=== PATIENT | male | born 1985 | race Caucasian/White ===

== ENCOUNTER 2024-02-08 15:57 | Inpatient (IN) | payer OTHER, SELFPAY ==
[2024-02-08] VITALS (7 sets, daily range): BP systolic 110–161; BP diastolic 63–99; BMI 23.5; BMI 23.0
[2024-02-08 11:09] LABS: Glucose - Point of Care 273 mg/dl (70-99)
[2024-02-08] MEDS: NSS 1000 IV ×2 (12:16→13:01)
[2024-02-08] MEDS: TORADOL 30 MG IV (12:18)
[2024-02-08] MEDS: ZOFRAN 4 MG IV (12:18)
[2024-02-08 12:25] LABS: % Basophils 0.1 % (0-2); % Immature Granulocytes 0.4 % (0-0.5); % Lymphocytes 3.8 % (20.5-51.1); % Monocytes 5.1 % (1.7-9.3); % Neutrophils 90.6 % (42.2-75.2); Absolute Immature Granulocytes 0.1 10^3/uL (0-0.05); Absolute Lymphocytes 0.6 10^3/uL (1.2-3.4); Absolute Monocytes 0.9 10^3/uL (0.1-0.6); Absolute Neutrophils 15.2 10^3/uL (1.4-6.5); Hematocrit 42.8 % (39.0-52.0); Hemoglobin 15.6 g/dL (13.0-18.0); Mean Corp Hgb Conc. 36.4 g/dL (33.0-37.0); Mean Corpuscular Volume 85.1 fL (80.0-94.0); Nucleated Red Blood Cells % 0 % (-); Platelet Count 273 10^3/uL (130-400); Red Blood Cell Count 5.03 10^6/uL (4.70-6.10); Red Cell Dist. Width 11.7 % (11.5-14.5); White Blood Cell Count 16.7 10^3/uL (4.8-10.8)
[2024-02-08 12:26] LABS: Venous Blood Gas B.E. 9.1 mmol/L (-4 to +4); Venous Blood Gas HCO3 30.7 mmol/L (22-27); Venous Blood Gas O2 Sat % 85.1 %; Venous Blood Gas pCO2 32 mmHg (35-48); Venous Blood Gas pH 7.59 (7.32-7.43); Venous Blood Gas pO2 48 mmHg (30-50)
[2024-02-08 12:27] LABS: Venous Blood Gas O2 Therapy RA
[2024-02-08 12:42] LABS: ALT (SGPT) 30 U/L (0-50); AST (SGOT) 28 U/L (17-59); Albumin 5.5 g/dl (3.5-5.0); Alkaline Phosphatase 80 U/L (38-126); Blood Urea Nitrogen 29 mg/dl (9-20); Calcium 10.6 mg/dl (8.4-10.2); Carbon Dioxide 28 mmol/L (22-30); Chloride 94 mmol/L (98-107); Estimated Creatinine Clearance 105 ml/min; Glucose 340 mg/dl (70-99); Lipase 20 U/L (23-300); Potassium 3.7 mmol/L (3.5-5.1); Sodium 140 mmol/L (135-145); Total Bilirubin 1.6 mg/dl (0.2-1.3); Total Protein 7.7 g/dl (6.3-8.2); eGFR > 60.00
[2024-02-08 12:49] LABS: B-Hydroxybutyrate 2.27 mmol/L (0.02-0.27)
[2024-02-08] MEDS: NOVOLIN R 7 UNITS IV (12:54)
--- NOTE | 2024-02-08 13:14 | ED.GENMED ---
History of Present Illness
General
Chief Complaint: Abdominal Symptoms
Source: patient
Time Seen by Provider: 02/08/24 11:51
History of Present Illness
History of Present Illness:
38-year-old male with past medical history of type 1 insulin-dependent diabetes presenting the emergency department for evaluation of persistent nausea and vomiting accompanied with abdominal pain that started last night and persisted into this
morning accompanied with blood sugars have been elevated at greater than 250. Patient states that over the last few weeks his blood sugars have been more abnormal than usual noting that his blood sugars are usually around 125-150. Patient is here
with his father who notes that about 2 months ago patient was admitted at [facility] for diabetic ketoacidosis. Patient states he cannot think of any triggers including recent illnesses, abnormal foods or any other reasoning behind his
symptoms that brought him here today. No known sick contacts or recent antibiotics. Social history was noted for marijuana use every other day, patient denies any use yesterday.
Past History
Past History
ED Past Medical History: IDDM
ED Past Surgical History: None
Social History
Tobacco: Non-smoker
Alcohol: Occasional
Drug: Marijuana
Personal: Single
Living: with family
Review of Systems
Review of Systems
All Other Systems: ROS reviewed and negative except as documented in HPI and ROS
Phy Exam
Physical Exam
Physical Exam:
GENERAL: Alert , ill-appearing and appears quite uncomfortable
EYE: Clear conjunctiva
NECK: Supple
ENT: o/p clr, dry mucous membranes
CARDIAC: Regular rate and rhythm, no murmur.
LUNGS: Clear breath sounds bilaterally, no acute respiratory distress, no wheezes/rales/rhonchi
ABDOMEN: Soft, generalized tenderness, no r/g, no cvat
NEUROLOGICAL: Alert and oriented
SKIN: Warm and dry, skin intact.
MUSCULOSKELETAL: well perfused.
PSYCH: Normal and appropriate interaction.
Scores
Heart Failure Risk
Heart Failure Risk Score: Not Applicable
Heart Score for Chest Pain Patients
STEMI patient?: Not applicable
Withdrawal Assessment of Alcohol
Withdrawal Assessment Completed?: Not applicable
Course
Orders/Labs/Results
Orders:
Orders
02/08/24 11:52
Urinalysis Reflex To Culture Urgent
0.9% Sodium Chloride 1000 ml [Nss] 1,000 ml IV BOLUS
02/08/24 12:07
Ketorolac [Toradol] 30 mg IV NOW STA
Ondansetron Injectable [Zofran] 4 mg IV NOW STA
02/08/24 12:12
B-Hydroxybutyrate Urgent
Complete Blood Count/With Diff Urgent
Comprehensive Metabolic Panel Urgent
Lipase Urgent
Venous Blood Gas Urgent
%Oxygen/Room Air: RA
02/08/24 12:47
0.9% Sodium Chloride 1000 ml [Nss] 1,000 ml IV BOLUS
02/08/24 12:48
IV Insert/Care/Rem.- Treatment PRN
Insulin Human Regular [Novolin R] 7 units IV NOW STA
02/08/24 13:29
Metoclopramide [Reglan] 10 mg IV NOW STA
Abnormal Lab Results
02/08/24 02/08/24 02/08/24
11:08 12:12 13:50
WBC 16.7 H 10^3/uL
(4.8-10.8)
Abs Immat Gran (auto) 0.1 H 10^3/uL
(0-0.05)
Absolute Neuts (auto) 15.2 H 10^3/uL
(1.4-6.5)
Absolute Lymphs (auto) 0.6 L 10^3/uL
(1.2-3.4)
Absolute Monos (auto) 0.9 H 10^3/uL
(0.1-0.6)
Neutrophils % 90.6 H %
(42.2-75.2)
Lymphocytes % 3.8 L %
(20.5-51.1)
VBG pH 7.59 H
(7.32-7.43)
VBG pCO2 32 L mmHg
(35-48)
VBG HCO3 30.7 H mmol/L
(22-27)
Chloride 94 L mmol/L
(98-107)
BUN 29 H mg/dl
(9-20)
Glucose 340 H mg/dl
(70-99)
Calcium 10.6 H mg/dl
(8.4-10.2)
Total Bilirubin 1.6 H mg/dl
(0.2-1.3)
Albumin 5.5 H g/dl
(3.5-5.0)
Lipase 20 L U/L
(23-300)
B-Hydroxybutyrate 2.27 H mmol/L
(0.02-0.27)
POC Glucose 273 H mg/dl 221 H mg/dl
(70-99) (70-99)
02/08/24 12:12
02/08/24 12:12
Vital Signs
Initial and Last Documented VS:
Initial Vital Signs
Temp Pulse Resp BP Pulse Ox
98.2 F 70 16 161/99 98
02/08/24 11:06 02/08/24 11:06 02/08/24 11:06 02/08/24 11:06 02/08/24 11:06
Last Documented Vital Signs
Temp Pulse Resp BP Pulse Ox
98.2 F 89 34 139/74 97
02/08/24 11:06 02/08/24 14:00 02/08/24 14:00 02/08/24 13:01 02/08/24 13:45
Psychology Assistant consulted with Physician
Psychology Assistant consulted with physician?: Yes
Name of Physician Consulted: Melani
MDM/Problems Addressed
Differential Diagnosis Includes:
DKA, HHNK, hyperglycemia, gastroparesis, cannabinoid hyperemesis, GERD/gastritis
MDM/Problems Addressed:
38-year-old male with past medical history of type 1 insulin-dependent diabetes presenting to the emergency department for evaluation of nausea and vomiting with abdominal discomfort that started last night and continued today. Noted to have
elevated blood sugars. Recent admission at [facility] 2 months ago for diabetic ketoacidosis. Will check labs including VBG and beta hydroxybutyrate. In the meantime medications ordered including IV fluids, Zofran and Toradol.
Reassessment following
Chronic conditions affecting care: DM
Acute Exacerbation and/or Progression of Chronic Illness: DM
*Pulse Oximetry
Patient hypoxic: no
*Shoes Hand Sewer Interpretation
Rate: normal
Rhythm: sinus
*Critical Care Note
Total Time (30-74mins, 75-104mins- exclusive of procedures): Not Applicable
Comment
Comment:
Patient's labs reveal leukocytosis. VBG is 7.59. Chemistry reveals an anion gap of 18. Glucose of 340. Patient's beta hydroxybutyrate is also significantly elevated at 2.27. This possible patient's VBG is alkalotic due to tachypnea. I do
suspect patient is bordering on DKA however. An additional second liter of IV fluids was ordered in addition to 7 units of insulin IV. Anticipate admission.
Patient Management
Escalation/DeEscalation of care consider admission/obs:
Hospitalist team is aware and accepts for continued evaluation and treatment. Will defer insulin drip to hospitalist team.
ED Attending Note
-
Portions of this chart may have been created with voice recognition software.� Occasional wrong word or��sound alike� substitutions may have occurred due to the inherent limitations of voice recognition software.
Discharge Plan
Departure
Patient Disposition: Admit
Date of Disposition: 02/08/24
Time of Disposition: 13:24
Presentation/result/management discussed w/ accepting MD/DO: Hospitalist
Discharge Problem:
Hyperglycemia due to type 1 diabetes mellitus, Nausea and vomiting
Prescriptions:
No Action
insulin glargine [Lantus U-100 Insulin] 100 UNITS/1 ML solution
30 units SC HS
insulin lispro [Humalog KwikPen Insulin] 100 unit/mL Insulin Pen
8 sliding scale dose SC AC
buspirone [BuSpar] 15 mg Tablet
15 mg PO TID
bupropion HCl [Wellbutrin XL] 150 mg Tablet Extended Release 24 Hr
150 mg PO DAILY
Referrals:
Sandie Sands DO [Family Provider] -
Interventions
Interventions:
*Risk Screen - Suicide Last Done: 02/08/24 12:24
*General Assessment Last Done: 02/08/24 12:24
*Neglect/Abuse Screening Last Done: 02/08/24 12:24
*ED COVID-19 Vaccine History Last Done: 02/08/24 12:24
RQ-Xyiyrn-Iaopbzewjw Assessment Last Done: 02/08/24 12:24
Discharge Date and Time
Print Language: MACEDONIAN
[2024-02-08] MEDS: REGLAN 10 MG IV (13:47)
[2024-02-08 13:51] LABS: Glucose - Point of Care 221 mg/dl (70-99)
[2024-02-08 15:32] LABS: Glucose - Point of Care 285 mg/dl (70-99)
--- NOTE | 2024-02-08 15:44 | HPS.HSE ---
Family Physician
-
Family Physician: Sandie Sands
Chief Complaint
-
Nausea and Vomiting with Abdominal Pain
History of Present Illness
38 year old male presents to the ED complaining of nausea, vomiting and abdominal pain. Patient has a past medical history of type 1 insulin dependent diabetes and anxiety and depression. His symptoms started the day before and got worse throughout
the day. Patient states that he has not felt being sick like this before and the feeling is completely different from when he was admitted with DKA at [facility] 2 months ago. Patient states that he has been under a lot of stress lately due
to a situation with his daughter and that this stress has been leading to increased gastroparesis. Patient says that he cannot think of any triggers that brought about his current condition as he has been keeping his diabetes under control since his
hospitalization. He also states that he has not had any recent illnesses, abnormal foods, any sick contact, travel or any new medications. Patient complains of some shortness of breath which he attributes to abdominal pain as he is not able to take
deep breaths due to the pain. Patient complains of pain in the epigastric region that radiates down bilaterally.
Medical History
Past Medical History
Past Medical History: Reports IDDM and Psychiatric ( Anxiety and Depression)
Past Surgical History: Reports None
Social History
Tobacco: Non-smoker
Alcohol: None
Drug: Marijuana (Every other day)
Family History
Family History: Other (Mother- Lupus)
Allergies / Home Medications
Allergies reflects when Allergies were last updated in [facility].
Home Medications with original date entered in [facility]
Allergy/Medication List:
Allergies: Prednisone, Wellbutrin
Medications: 30 units Lantus, Humalog 8 sliding scale dose, Buproprion 150mg, Buspirone 15mg TID
Review of Systems
-
History Source: Patient and Family
Constitutional: Reports See HPI
EENT: Reports See HPI
Respiratory: Reports See HPI
Cardiac: Denies Chest Pain, Diaphoresis or Palpitations
Abdomen/GI: Reports See HPI
Endocrine: Denies Polyuria or Polydipsia
Psych: Reports Anxiety
Physical Exam
Vital Signs
Vital Signs
Temp Pulse Resp BP Pulse Ox
98.7 F 89 34 139/74 97
02/08/24 15:06 02/08/24 14:00 02/08/24 14:00 02/08/24 13:01 02/08/24 13:45
Physical Exam
General: Appears in Distress
Respiratory: Clear and Non Labored Respirations
Cardiac: S1/S2 and Regular Rhythm
GI: Normal Bowel Sounds and Tender
Skin: Warm and Dry
Neuro: Awake, Alert, Oriented and AO x 3
Psych: Anxious
Laboratory Results
-
02/08/24 12:12
02/08/24 12:12
Laboratory Results
Total Bilirubin 1.6 mg/dl (0.2-1.3) H 02/08/24 12:12
AST 28 U/L (17-59) 02/08/24 12:12
ALT 30 U/L (0-50) 02/08/24 12:12
Alkaline Phosphatase 80 U/L (38-126) 02/08/24 12:12
Lipase 20 U/L (23-300) L 02/08/24 12:12
Data Reviewed
-
Lab Data: Labs Reviewed by me, Discussed with Physician, Discussed with Patient and Discussed with Family
Impression/Plan
-
IMPRESSION: 38 year old male patient with a history of type I diabetes, anxiety and depression comes to the ED with a recent history of Nausea, Vomiting and Abdominal Pain. Patient's nausea and vomiting to be managed with medication and his
abdominal pain will be monitored. Type I diabetes will be managed with Lantus and Novolog, dose lowered due to not being able to eat. Patient's Leukocytosis to be monitored for any changes. Anxiety and depression to be managed with Ativan IV 0.5 mg
and patient to resume previous medications once able.
PLAN:
Nausea and Vomiting
-Metoclopramide 5mg IV
-Zofran 4mg IV
-Full liquid diet
Abdominal Pain
-Ultrasound abdomen in AM
-Monitor for worsening pain
-Lactic Acid ordered
Type I Diabetes
-Contine Lantus 20units
-Continue Novolog
-HgbA1c in AM
-monitor CMP
-Glucose monitoring
-TSH in morning
Leukocytosis
-Monitor CBC in AM
Anxiety Depression
-Ativan 0.5mg IV
-ECG in AM QTC Monitoring
DVT Prophylaxis- Lovenox 40mg
[2024-02-08] MEDS: ATIVAN 1 MG IV (15:48)
--- NOTE | 2024-02-08 16:02 | W.PN.UPDATE ---
Update Note
Progress Note Update
I personally performed a history and physical exam of the patient and discussed management with the resident. I reviewed the resident's note and agree with the documented findings and plan of care HPI/CC.
38-year-old male with history of type I diabetic on insulin, anxiety/depression, marijuana abuse came in for acute onset of nausea vomiting from last night. Symptoms were rapid onset in nature and associated with diffuse abdominal pain. Had
episode of diarrhea in the morning. Afebrile. Patient does report of having on and off nausea vomiting episode at home which patient able to manage with use of omar vidal/mints. Patient having suggested to possibly gastroparesis instead of having
EGD although no gastric emptying test has been done in the past. Has been diagnosed for diabetic from age 26 and last A1c has been close to 7.
HEENT: No pallor, cyanosis, or jaundice. Throat clear.
NECK: Supple. No JVD.
RESPIRATORY: Lungs clear to auscultation.
CVS: S1, S2 normal. RRR. No murmur, rub or gallop.
ABDOMEN: Soft, diffuse tenderness, bowel sounds present
EXTREMITIES: No peripheral cyanosis or edema.
SHALLOT PACKER: AOx3. No focal deficits.
Intractable nausea and vomit
-Presumably from gastroparesis flareup versus viral gastroenteritis versus marijuana use related
-Abdominal examination relatively benign without any signs of true structural issues
-Total bilirubin marginally elevated 1.6, check gallbladder/ultrasound
-Avoid further imaging at this point as no other true signs of stone being structural problem
-Check urine drug screen
-Maintained on Reglan 5 mg IV every 8 over schedule with Zofran as needed
-Start on full liquid diet and can be advanced to solid if able to tolerate
-Maintain on IV fluid with LR at rate of 100 mL/h
-Observation admission to MedSurg floor
Type 1 diabetes mellitus
-Check hemoglobin A1c
-Decrease nighttime Lantus dose to 20 units at bedtime and Premeal insulin to 3 and AC with moderate insulin sliding scale
-No clinical concern of DKA as patient bicarb of 28
Metabolic alkalosis
-Borderline elevated bicarb likely due to ongoing nausea and vomiting
Leukocytosis
-Presumed reactive. Monitor temperature curve
-No indication for antibiotics
Hypercalcemia
-borderline elevated and likely from volume depletion
-monitor post IVF
Anxiety
-Patient not able to take home dose of Wellbutrin/buspirone and feels anxious
-IV Ativan half milligram every 6 hours as needed for now
DVT PPX - lovenox
Full code
Total time spent : 77
[2024-02-08 16:04] LABS: Urine Albumin 2+ (Neg - Trace); Urine Bilirubin Negative (Negative); Urine Character Clear (Clear); Urine Color Yellow; Urine Glucose 3+ (Negative); Urine Ketone 3+ (Negative); Urine Leukocyte Negative (Negative); Urine Nitrite Negative (Negative); Urine Occult Blood Trace (Negative); Urine Urobilinogen Negative (Neg - 1+)
[2024-02-08 16:21] LABS: Amphetamines Negative (Negative); Barbiturates Negative (Negative); Benzodiazepines Negative (Negative); Buprenorphine Negative (Negative); Cocaine Negative (Negative); Marijuana Positive (Negative); Methadone Negative (Negative); Methamphetamines Negative (Negative); Opiates Negative (Negative); Phencyclidine Negative (Negative); Tricyclic Antidepressants Negative (Negative)
[2024-02-08 17:07] LABS: Glucose - Point of Care 281 mg/dl (70-99)
[2024-02-08 17:27] LABS: Urine Red Blood Cell 0-2 /HPF (0-2); Urine White Cell 0-2 /HPF (0-5)
[2024-02-08 17:32] LABS: Lactic Acid 2.1 mmol/L (0.7-2.0)
[2024-02-08] MEDS: LR 1000 IV (17:35)
[2024-02-08] MEDS: NOVOLOG FLEXPEN 3 UNITS SC (17:36)
[2024-02-08] MEDS: NOVOLOG FLEXPEN-MODERATE RESISTANCE 5 UNITS SC (17:36)
[2024-02-08] MEDS: LOVENOX 40 MG SC (17:40)
[2024-02-08 21:32] LABS: Glucose - Point of Care 223 mg/dl (70-99)
[2024-02-08] MEDS: LANTUS 0.2 UNITS SC (21:38)
[2024-02-08] MEDS: REGLAN 5 MG IV (23:03)
[2024-02-09] MEDS: LR 1000 IV ×2 (03:44→20:00)
[2024-02-09 06:46] LABS: % Basophils 0.1 % (0-2); % Immature Granulocytes 0.7 % (0-0.5); % Lymphocytes 7.6 % (20.5-51.1); % Monocytes 6.1 % (1.7-9.3); % Neutrophils 85.5 % (42.2-75.2); Absolute Immature Granulocytes 0.1 10^3/uL (0-0.05); Absolute Lymphocytes 1.6 10^3/uL (1.2-3.4); Absolute Monocytes 1.3 10^3/uL (0.1-0.6); Absolute Neutrophils 17.8 10^3/uL (1.4-6.5); Hematocrit 40.6 % (39.0-52.0); Hemoglobin 14.6 g/dL (13.0-18.0); Mean Corpuscular Hgb 31.1 pg (27.0-31.0); Mean Corpuscular Volume 86.6 fL (80.0-94.0); Mean Platelet Volume 10.7 fL (7.4-10.4); Nucleated Red Blood Cells % 0 % (-); Platelet Count 268 10^3/uL (130-400); Red Blood Cell Count 4.69 10^6/uL (4.70-6.10); Red Cell Dist. Width 11.5 % (11.5-14.5); White Blood Cell Count 20.8 10^3/uL (4.8-10.8)
[2024-02-09 06:59] LABS: ALT (SGPT) 26 U/L (0-50); AST (SGOT) 29 U/L (17-59); Albumin 4.6 g/dl (3.5-5.0); Alkaline Phosphatase 76 U/L (38-126); Blood Urea Nitrogen 18 mg/dl (9-20); Calcium 9.3 mg/dl (8.4-10.2); Carbon Dioxide 24 mmol/L (22-30); Chloride 96 mmol/L (98-107); Estimated Creatinine Clearance 118 ml/min; Glucose 244 mg/dl (70-99); Potassium 3.7 mmol/L (3.5-5.1); Sodium 133 mmol/L (135-145); Total Bilirubin 2.1 mg/dl (0.2-1.3); Total Protein 6.6 g/dl (6.3-8.2); eGFR > 60.00
[2024-02-09 07:30] LABS: TSH Reflex To Free T4 0.85 uIU/ml (0.47-4.68)
[2024-02-09 07:43] VITALS: BP 157/90
--- NOTE | 2024-02-09 07:44 | W.PN.HOSP.TC ---
Addendum entered and electronically signed by Srinath Houston MD 02/09/24 15:23:
I saw and evaluated the patient. I reviewed the resident�s note and agree with findings and plan as documented in the resident�s note.
No further episodes of nausea and vomiting in the night. Denies having any diarrhea overnight.
Continues to have diffuse abdominal pain
1. Intractable nausea and vomiting
Likely gastroparesis flareup
-Potential differential remains of marijuana and use related to hyperemesis syndrome and viral gastroenteritis
-LFT remains normal. Liver ultrasound did not show any acute abnormality
-Clinically feeling better today, can stop further IV fluid if able to tolerate low-fat diet
-Continue symptomatic care with Reglan/Zofran.
-Recommended to f/u with primary GI post discharge to have gastric nuclear emptying test
2. Leukocytosis
-worsening without any true infectious source.
-If continue to worsening/become febrile will do abd imaging tomorrow
-will need culture/abx for GI source of infection as well
-Lactic acidosis of unknown significance, improving
3. IDDM
-a1c of 8
-Increase NovoLog to 5 at AC and provide 30-minute of at bedtime Lantus
4. Depression/anxiety
-Patient back on home medication of bupropion/buspirone
5. Hyponatremia
-minimal, monitor
Original Note:
Today's Communication/Plan
-
Continue monitoring patient for any worsening condition. Patient will continue receiving his diabetic medication.
Assessment / Plan
Assessment / Plan
38 year old male patient with a history of type I diabetes, anxiety and depression comes to the ED with a recent history of Nausea, Vomiting and Abdominal Pain. Patient's nausea and vomiting to be managed with medication and his abdominal pain will
be monitored. Type I diabetes will be managed with Lantus and Novolog, dose lowered due to not being able to eat. Patient's Leukocytosis to be monitored for any changes. Anxiety and depression to be managed with Ativan IV 0.5 mg and patient to
resume previous medications once able.
Intractable Nausea and Vomiting
-Possibly from gastroparesis flare-up versus viral gastroenteritis versus marijuana use related
-Patient sees a GI specialist for gastroparesis. Counseled to have a gastric emptying study
-Total bilirubin marginally elevated 2,1, ultrasound negative, continue monitoring
-Avoid further imaging at this point as no other true signs of stone being structural problem
-Urine drug screen positive for marijuana use
-Maintained on Reglan 5 mg IV every 8 over schedule with Zofran as needed
-Start on full liquid diet and can be advanced to solid if able to tolerate
-Maintain on IV fluid with LR at rate of 100 mL/h
-Continue observation for one more day
Type 1 diabetes mellitus
-Hemoglobin A1c- 8.0
-Decrease nighttime Lantus dose to 20 units at bedtime and Premeal insulin to 3 and AC with moderate insulin sliding scale
-Glucose levels remain elevated, Novolog 5 units added
-No clinical concern of DKA as patient bicarb of 28
Metabolic alkalosis
-Borderline elevated bicarb likely due to ongoing nausea and vomiting
Hyponatremia-
-140 -> 133 Possibly due to fluid infusion
-Continue Monitor BMP
Leukocytosis
-Presumed reactive. Monitor temperature curve
-No indication for antibiotics
-Continued leukocytosis without fever
Hypercalcemia
-borderline elevated and likely from volume depletion
-resolved
Anxiety
-Patient cannot resume home meds as of now
-IV Ativan half milligram every 6 hours as needed for now
-Monitor ECG for QTc Int
-ECG 02/08 QTc Int : 444 ms
Anticipated Discharge: Within 24 hours
Subjective/Interval History
-
Date of Service: February 09, 2024
Patient has been feeling better compared to yesterday. Still has some lingerying abdominal pain and nausea. Has not vomited since yesterday.
Objective Data
-
Labs:
Laboratory Results
02/09/24
05:59
WBC 20.8 H
Hgb 14.6
Hct 40.6
Plt Count 268
Sodium 133 L
Potassium 3.7
Chloride 96 L
Carbon Dioxide 24
BUN 18
Creatinine 0.8
Glucose 244 H
Calcium 9.3
Total Bilirubin 2.1 H
AST 29
ALT 26
Alkaline Phosphatase 76
Vital Signs:
Vital Signs
Temp Pulse Resp BP Pulse Ox
98.7 F 80 18 136/80 99
02/08/24 23:20 02/08/24 23:20 02/08/24 23:20 02/08/24 23:20 02/08/24 23:20
I&O
02/08/24 02/09/24 02/10/24
06:59 06:59 06:59
Intake Total 960 / 960
Balance 960 / 960
Review of Systems
-
History Source: Patient
Constitutional: Denies Fever, Night Sweats, Chills or Weakness
Respiratory: Denies Cough, Hemoptysis or Wheezing
Cardiac: Denies Chest Pain, Diaphoresis, Palpitations or Syncope
Abdomen/GI: Reports Abdominal Pain and Nausea; Denies Vomiting, Diarrhea or Constipated
Neuro: Denies Headache or Weakness
Physical Exam
-
General: No Apparent Distress and Comfortable
GI: Soft, Normal Bowel Sounds and Tender (less tender than yesterday)
Musculoskeletal: No Clubbing, No Cyanosis and No Edema
Skin: Warm and Dry
Neuro: Awake, Alert, Oriented, AO x 3 and No Motor Deficits
Data Reviewed
-
Ultrasound: Report Reviewed by me, Discussed with Physician and Discussed with Patient
Labs: Labs Reviewed by me, Discussed with Physician and Discussed with Patient
[2024-02-09 07:58] LABS: Glucose - Point of Care 285 mg/dl (70-99)
[2024-02-09] MEDS: NOVOLOG FLEXPEN-MODERATE RESISTANCE 5 UNITS SC ×2 (10:02→18:00)
[2024-02-09] MEDS: NSS (PRESERVATIVE FREE) 0.25 ML IV (10:03)
[2024-02-09] MEDS: REGLAN 5 MG IV ×3 (10:03→23:00)
[2024-02-09] MEDS: ATIVAN 0.5 MG IV (10:04)
[2024-02-09] MEDS: NOVOLOG FLEXPEN 3 UNITS SC (10:26)
[2024-02-09 11:34] LABS: Glucose - Point of Care 312 mg/dl (70-99)
[2024-02-09] MEDS: NOVOLOG FLEXPEN 5 UNITS SC ×2 (12:29→18:00)
[2024-02-09] MEDS: NOVOLOG FLEXPEN-MODERATE RESISTANCE 7 UNITS SC (12:30)
[2024-02-09] MEDS: ROXICODONE 5 MG PO ×2 (12:59→20:01)
[2024-02-09 14:34] LABS: Direct Bilirubin 0.4 mg/dl (0.0-0.4)
[2024-02-09 15:32] VITALS: BP 132/79
[2024-02-09] MEDS: BUSPAR 15 MG PO ×2 (16:13→21:06)
[2024-02-09] MEDS: WELLBUTRIN XL (24 hour extended release) 150 MG PO (16:13)
--- NOTE | 2024-02-09 16:20 | CM ---
IA Completed. Patient seen at bedside with mom.
Dx: N&V
PMH: DM1, anxiety & depression.
Patient lives alone in a 2 story home with 4 steps to enter & flight of steps to 2nd floor.
PLOF: Independent, drives
No needs identified at this time.
PCP: Sandie Sands
Pharmacy: [facility]
PLAN: Discharge to home when stable. No needs identified at this time.
[2024-02-09 18:00] LABS: Glucose - Point of Care 259 mg/dl (70-99)
[2024-02-09] MEDS: LOVENOX SC (18:04)
[2024-02-09] MEDS: ZOFRAN 4 MG IV (20:49)
[2024-02-09] MEDS: LANTUS 0.2 UNITS SC (21:06)
[2024-02-09 21:09] LABS: Glucose - Point of Care 178 mg/dl (70-99)
[2024-02-09 23:16] VITALS: BP 145/80
[2024-02-10] MEDS: LR IV (01:20)
[2024-02-10 07:07] VITALS: BP 131/77
[2024-02-10 07:18] LABS: Glucose - Point of Care 226 mg/dl (70-99)
[2024-02-10 08:16] LABS: % Basophils 0.2 % (0-2); % Immature Granulocytes 0.6 % (0-0.5); % Lymphocytes 9.7 % (20.5-51.1); % Monocytes 7.5 % (1.7-9.3); Absolute Immature Granulocytes 0.1 10^3/uL (0-0.05); Absolute Lymphocytes 1.2 10^3/uL (1.2-3.4); Absolute Monocytes 0.9 10^3/uL (0.1-0.6); Absolute Neutrophils 9.8 10^3/uL (1.4-6.5); Hematocrit 36.6 % (39.0-52.0); Hemoglobin 13.4 g/dL (13.0-18.0); Mean Corp Hgb Conc. 36.6 g/dL (33.0-37.0); Mean Corpuscular Hgb 30.4 pg (27.0-31.0); Mean Platelet Volume 10.3 fL (7.4-10.4); Nucleated Red Blood Cells % 0 % (-); Platelet Count 251 10^3/uL (130-400); Red Blood Cell Count 4.41 10^6/uL (4.70-6.10); Red Cell Dist. Width 11.3 % (11.5-14.5); White Blood Cell Count 11.9 10^3/uL (4.8-10.8)
[2024-02-10] MEDS: NOVOLOG FLEXPEN-MODERATE RESISTANCE 3 UNITS SC (08:42)
[2024-02-10] MEDS: NOVOLOG FLEXPEN 5 UNITS SC ×2 (08:42→13:30)
[2024-02-10] MEDS: WELLBUTRIN XL (24 hour extended release) 150 MG PO (08:43)
[2024-02-10] MEDS: BUSPAR 15 MG PO (08:43)
[2024-02-10 09:09] LABS: Blood Urea Nitrogen 16 mg/dl (9-20); Calcium 8.8 mg/dl (8.4-10.2); Carbon Dioxide 22 mmol/L (22-30); Chloride 95 mmol/L (98-107); Estimated Creatinine Clearance 118 ml/min; Glucose 339 mg/dl (70-99); Potassium 4.4 mmol/L (3.5-5.1); Sodium 128 mmol/L (135-145); eGFR > 60.00
[2024-02-10] MEDS: REGLAN 5 MG IV (09:35)
[2024-02-10 11:42] LABS: Glucose - Point of Care 262 mg/dl (70-99)
[2024-02-10 13:30] VITALS: BP 137/62
[2024-02-10] MEDS: NOVOLOG FLEXPEN-MODERATE RESISTANCE 5 UNITS SC (13:31)
--- NOTE | 2024-02-10 14:06 | W.PN.HOSP.TC ---
Addendum entered and electronically signed by Srinath Houston MD 02/10/24 16:58:
1. Intractable nausea and vomiting
Likely gastroparesis flareup
-Potential differential remains of marijuana and use related to hyperemesis syndrome and viral gastroenteritis
-LFT remains normal. Liver ultrasound did not show any acute abnormality
-Continue symptomatic care with Reglan/Zofran.
-Recommended to f/u with primary GI post discharge to have gastric nuclear emptying test
2. Leukocytosis -resolved
-worsening without any true infectious source.
-If continue to worsening/become febrile will do abd imaging tomorrow
-will need culture/abx for GI source of infection as well
-Lactic acidosis of unknown significance, improving
3. Type I DM
-a1c of 8
-discharge on home regimen
4. Depression/anxiety
-Patient back on home medication of bupropion/buspirone
5. Hyponatremia
-worsening, asymptomatic
-f/u BMP script provided in 1 week
Original Note:
Today's Communication/Plan
-
Patient prescribed new anti-nausea medication as needed and discharged.
Assessment / Plan
Assessment / Plan
Assessment: 38 year old male came to the hospital with nausea, vomiting, and abdominal pain. Patient's abdominal pain has improved vastly and he no longer has any nausea or vomiting. Patient discharged today after showing capacity to eat solid foods.
Plan:
1. Intractable nausea and vomiting due to likely gastroparesis flareup
-Could be due to substance abuse disorder via marijuana or viral gastroenteritis
-No abnormalities in LFTs
-Patient started on solid diet which he was able to tolerate
-Zofran 4mg PO PRN prescribed for symptomatic treatment of nausea and vomiting at home
-Patient asked to follow up with GI in an outpatient setting. Gastric emptying study recommended.
2. Leukocytosis
-resolving
-WBC count decreased from 20.8-11.9
-afebrile, no signs or symptoms of infection
-likely due to gastroparesis induced stress
3. Insulin Dependent Diabetes Mellitus
-HbA1c 8
-Patient resumed on home dose of Lantus and Humalog
4. Depression/anxiety
-Patient able to tolerate oral medications, restarted back on home meds
-Continue bupropion and buspirone
5. Hyponatremia
-continue to monitor
-possibly due to fluid infusion
-Patient given paper script to get BMP within a week and follow up with PCP
Anticipated Discharge: Today
Subjective/Interval History
-
Date of Service: February 10, 2024
Patient was feeling much better in the morning. Had no adverse events overnight
Objective Data
-
Labs:
Laboratory Results
02/10/24
07:48
WBC 11.9 H
Hgb 13.4
Hct 36.6 L
Plt Count 251
Sodium 128 L
Potassium 4.4
Chloride 95 L
Carbon Dioxide 22
BUN 16
Creatinine 0.8
Glucose 339 H
Calcium 8.8
Vital Signs:
Vital Signs
Temp Pulse Resp BP Pulse Ox
98.5 F 81 18 137/62 98
02/10/24 13:30 02/10/24 13:30 02/10/24 13:30 02/10/24 13:30 02/10/24 13:30
I&O
02/09/24 02/10/24 02/11/24
06:59 06:59 06:59
Intake Total 960 / 960 1800 / 1800
Balance 960 / 960 1800 / 1800
Review of Systems
-
History Source: Patient
Constitutional: Reports No Symptoms
EENT: Reports No Symptoms Reported
Respiratory: Reports No Symptoms
Cardiac: Reports No Symptoms
Abdomen/GI: Reports Nausea
Physical Exam
-
General: Well Developed, Well Nourished and No Apparent Distress
Respiratory: Clear to Auscultation
Cardiac: Regular Rhythm and S1/S2
GI: Soft, Nontender and Nondistended
Skin: Warm and Dry
Psych: Calm
Data Reviewed
-
Labs: Labs Reviewed by me, Discussed with Physician, Discussed with Patient and Discussed with Family
--- NOTE | 2024-02-10 14:52 | W.DCSUMMARY ---
Addendum entered and electronically signed by Srinath Houston MD 02/13/24 12:51:
Read, reviewed, and agree. See same day progress note for additional details. Time spent coordinating care, DC planning, review of DC plan of care with resident, transition of care, review of records in EMR, med rec, consults, notes, d/w
consultants, nursing, family, and CM mins
Original Note:
Documented by User: Nayeli Mendiola MD, Resident 02/10/24 15:03
Discharge Summary
Discharge Data
Date of Admission: 02/08/24
Date of Discharge: 02/10/24
-
Pending Results: No
Hospital Course
38-year-old male presented to the ED on 02/07 complaining of nausea vomiting abdominal pain. Patient had a past medical history of type 1 insulin-dependent diabetes, anxiety and depression. Patient was in much distress and had a lot of pain
throughout his abdomen starting from the base of his sternum and radiating throughout the abdomen. Patient said that his symptoms started the day before and got worse throughout the day. He stated that he had not felt that sick ever before and that
pain is completely typical when he was admitted with DKA at [facility] 2 months ago. Patient said that he had been under a lot of stress and has a history of gastroparesis which can get worse with stress. [place]. Patient was admitted to the hospital for his intractable nausea and vomiting which was presumed to be from his gastroparesis flareup versus a viral gastroenteritis. This also could have been due to his marijuana
use. On examination patient's abdomen was very tender however there were no signs of there being a structural problem. Patient was given Reglan 5 mg IV every 8 hours to help with his nausea and was started on a full liquid diet [facility] Patient's type 1 diabetes was managed by decreasing his Lantus dose to 20 units and Premeal insulin to 3 with moderate insulin sliding scale. Patient had no clinical concern for DKA as his bicarbonate levels were 28. Patient
had leukocytosis but it was presumed to be reactive monitor or any indications for infection. Patient cannot take his home medication for his anxiety so he was given IV Ativan half milligram every 6 hours as needed.
Patient symptoms improved the next day however he still has some abdominal pain and nausea. Patient's diet was upgraded from liquid diet as he was able to tolerate more. Patient recommended to get a gastric nuclear emptying test with his primary
PGI post discharge. Patient's leukocytosis seemed to have worsened the next day however he was still being monitored as he has no other symptoms of an acute infection. Patient's diabetes was managed by increasing the NovoLog to 5 at and
provided 30 minutes before bedtime. Patient's hyponatremia was also being monitored as it was minimal at this point
Patient is was feeling much better the next day and had basically no abdominal pain upon palpation. Patient had an adverse event overnight however where he dealt with a stressful situation however he felt better after medication. Patient's
leukocytosis also resolved as well as his hyponatremia. Patient was able to tolerate a full diet and a would could continue taking his oral medications from home. Patient was discharged after seeing that he was stable and that he was able to
tolerate a full diet. Patient was advised to go see his GI specialist and PCP after being discharge and getting BMP test done before making them. Patient prescribed Zofran to help manage his nausea as needed.
Discharge Plan
-
Patient Disposition: Home (Routine Discharge)
Discharge Diagnosis/Procedures: Intractable nausea and vomiting probable to gastroparesis flareup
Condition: Fair
Diet: Diabetic, Carb Controlled
Activity: No restrictions
Driving Restrictions: As prior to admission
Bathing Restrictions: None
Blood Work: BMP in one week, bring results to PCP
Activity Restrictions/Additional Instructions:
Follow up with your GI specialist for further workup of your gastroparesis. Talk to them about a gastric emptying study.
Referrals:
Sandie Sands DO [Family Provider] -
Additional Discharge Medication Instructions: Continue home insulin regimen, take Zofran for nausea as needed
Prescriptions:
New
ondansetron HCl 4 mg tablet
4 mg PO DAILY MDD 24mg PRN (Reason: nausea and vomiting) 30 Days Qty: 60 0RF
Rx Instructions:
Can be taken q4hr no more than 8 tablets a day
Continued
insulin glargine [Lantus U-100 Insulin] 100 UNITS/1 ML solution
30 units SC HS
insulin lispro [Humalog KwikPen Insulin] 100 unit/mL Insulin Pen
8 sliding scale dose SC AC
buspirone 15 mg Tablet
15 mg PO TID
bupropion HCl [Wellbutrin XL] 150 mg Tablet Extended Release 24 Hr
150 mg PO DAILY
Discharge Orders:
Discharge Patient (As Directed); Ordered 02/10/24
Ordered By: Nayeli Mendiola
Discharge Date and Time
Discharge Date/Time: 02/10/24 14:42
Print Language: LATVIAN

Documented by User: Srinath Houston MD 02/13/24 12:51
Discharge Summary
Discharge Data
Date of Admission: 02/08/24
Date of Discharge: 02/10/24
Discharge Plan
-
Patient Disposition: Home (Routine Discharge)
Discharge Diagnosis/Procedures: Intractable nausea and vomiting probable to gastroparesis flareup
Condition: Fair
Diet: Diabetic, Carb Controlled
Activity: No restrictions
Driving Restrictions: As prior to admission
Bathing Restrictions: None
Blood Work: BMP in one week, bring results to PCP
Activity Restrictions/Additional Instructions:
Follow up with your GI specialist for further workup of your gastroparesis. Talk to them about a gastric emptying study.
Referrals:
Sandie Sands DO [Family Provider] -
Additional Discharge Medication Instructions: Continue home insulin regimen, take Zofran for nausea as needed
Prescriptions:
New
ondansetron HCl 4 mg tablet
4 mg PO DAILY MDD 24mg PRN (Reason: nausea and vomiting) 30 Days Qty: 60 0RF
Rx Instructions:
Can be taken q4hr no more than 8 tablets a day
Continued
insulin glargine [Lantus U-100 Insulin] 100 UNITS/1 ML solution
30 units SC HS
insulin lispro [Humalog KwikPen Insulin] 100 unit/mL Insulin Pen
8 sliding scale dose SC AC
buspirone 15 mg Tablet
15 mg PO TID
bupropion HCl [Wellbutrin XL] 150 mg Tablet Extended Release 24 Hr
150 mg PO DAILY
Discharge Orders:
Discharge Patient (As Directed); Ordered 02/10/24
Ordered By: Nayeli Mendiola
Discharge Date and Time
Discharge Date/Time: 02/10/24 14:42
Print Language: LATVIAN
== END 2024-02-10 14:42 | disposition home or self-care (01) | DRG 74 ==
LOC: 4 WEST ACU 15:57
PROVIDERS: Physician Assistant Medical; Student in an Organized Health Care Education/Training Program; ADMITTING PHYSICIAN Hospitalist; EMERGENCY PHYSICIAN Student in an Organized Health Care Education/Training Program; FAMILY PHYSICIAN Family Medicine
DX: E10.43 Type 1 diabetes mellitus with diabetic autonomic (poly)neuropathy (principal); E87.3 Alkalosis; E87.1 Hypo-osmolality and hyponatremia; K31.84 Gastroparesis; E83.52 Hypercalcemia; F41.9 Anxiety disorder, unspecified; F32.A Depression, unspecified; D72.829 Elevated white blood cell count, unspecified; F12.10 Cannabis abuse, uncomplicated; Z79.4 Long term (current) use of insulin
CPT/HCPCS: 76700; 80048; 80053; 80306; 81003; 81015; 82010; 82248; 82805; 82962; 83036; 83605; 83690; 84443; 85025; 93005; 96361; 96374; 96375; 99285

== ENCOUNTER 2024-05-12 01:11 | Inpatient (IN) | payer OTHER, SELFPAY ==
[2024-05-11] VITALS (8 sets, daily range): BP systolic 66–110; BP diastolic 40–68; BMI 22.4
[2024-05-11 22:48] LABS: Glucose - Point of Care > 600 mg/dl (70-99)
[2024-05-11] MEDS: NSS 2000 ML IV (23:00)
--- NOTE | 2024-05-11 23:01 | ED.GENMED ---
History of Present Illness
<INDU Mott Last Filed: 05/12/24 00:11>
General
Chief Complaint: Blood Sugar Problem
Source: patient and family
Exam Limitations: clinical condition
Time Seen by Provider: 05/11/24 22:55
History of Present Illness
History of Present Illness:
39-year-old insulin-dependent type 1 diabetic presents with presumed DKA. Patient apparently has been taking his insulin however he got a vomiting illness starting 3 days ago and has not been able to keep his sugars down despite dosing his insulin.
Patient'S friend was trying to convince him to come in for couple of days. He found him to be very drowsy tonight and more confused.
Patient presumes that his autistic son brought home a virus causing him to have the vomiting. He has no pain at the moment. He feels like he needs to urinate but cannot
Past History
<INDU Mott Last Filed: 05/12/24 00:11>
Past History
ED Past Medical History: IDDM
ED Past Surgical History: None
Social History
Tobacco: Non-smoker
Alcohol: Occasional
Drug: Marijuana
Personal: Single
Living: with family
Review of Systems
<INDU Mott Filed: 05/12/24 00:11>
Review of Systems
Allergies reviewed?: Yes
All Other Systems: Not applicable
Phy Exam
<INDU Mott Last Filed: 05/12/24 00:11>
Physical Exam
Physical Exam:
GENERAL: Alert , drowsy, ill-appearing
EYE: pupils equal and reactive
NECK: Supple
ENT: o/p clr, extremely dry
CARDIAC: Tachycardic
LUNGS: Clear breath sounds bilaterally, no acute respiratory distress, no wheezes/rales/rhonchi
ABDOMEN: Soft, distended, firm bladder, no r/g, no cvat, normal bowel sounds
NEUROLOGICAL: Drowsy but awake, mildly confused no focal neuro deficits
SKIN: Warm and dry, skin intact.
MUSCULOSKELETAL: No edema, well perfused. neg janett's sign
PSYCH: Normal and appropriate interaction.
Course
<Harini Leyva PA-C - Last Filed: 05/12/24 00:11>
Orders/Labs/Results
Orders:
Orders
05/11/24 22:54
EKG [Electrocardiogram (*1)] Urgent
Reason for Study: Fatigue / Weakness
EKG- Treatment ONCE
05/11/24 22:55
IV Insert/Care/Rem.- Treatment PRN
0.9% Sodium Chloride 1000 ml [Nss] 2,000 ml IV NOW STA
05/11/24 22:57
Bladder Scan- Treatment ONCE
Deras Placement- Treatment ONCE
Reason for insertion: Acute Retention
05/11/24 22:59
B-Hydroxybutyrate Urgent
Basic Metabolic Panel Q2H
Complete Blood Count/With Diff Urgent
Lactic Acid Q4H
Comment: CANCEL 2nd LACTIC ACID IF 1st LACTIC ACID IS LESS THAN 2
Lipase Urgent
Magnesium Urgent
Phos [Phosphorus] Urgent
Venous Blood Gas Urgent
%Oxygen/Room Air: 21
05/11/24 23:19
ABG [Arterial Blood Gas] Stat
%Oxygen/Room Air: ROOM AIR
05/11/24 23:23
Reg Insulin 100 Units/100 ml [Novolin R Insulin Infusion] 100 units in 100 ml IV NOW
05/11/24 23:27
Urinalysis Reflex To Culture Urgent
Date Specimen was Collected: 05/11/24
Time Specimen was Collected: 23:23
05/11/24 23:29
Insulin Human Regular [Novolin R] 6 units IV NOW STA
05/11/24 23:39
CR Chest Portable - 1 View Urgent
Comment:
Reason For Exam: sepsis
Reason Study Needs to be Portable: Patient Unstable
05/11/24 23:43
Cefepime HCl [Maxipime] 1,000 mg IV NOW STA
05/11/24 23:59
COVID-19 Antigen Urgent
Source: Nasal Swab
Blood Culture Urgent
FIONA Source: Blood/Venous
Specimen Description:
Influenza A+B Rapid Molecular Urgent
FIONA Source: Nasal Swab
Specimen Description:
05/12/24 00:15
Admit/Transfer Patient As Directed
Co-Sign Provider:
Level of Care: Inpatient admission
Assign to:: ICU
Physician / Group: Justin
Diagnosis: DKA
Reason for Hospitalization: DKA
Expected length of stay greater than two midnights?: Yes
ELOS- Estimated Length of Stay in days: 3
I certify the patient meets the requirements for IP care: Yes
PRN Pain Medication Management As Directed
May give lesser potent ordered pain med per pt: Yes
preference::
Protocol:: Medication orders for pain may be administered in a
manner that supports deferring to patient preference
when the pt is:
- Requesting an ordered lesser potent pain medication.
Least to most potent pain medications are defined
as: acetaminophen < NSAID < tramadol < opioids
(morphine, oxycodone, hydromorphone).
- Requesting a lesser dose of the same medication IF
ORDERED.
- Requesting a less intrusive route of administration
if both routes are prescribed by the provider (PO <
IV).
05/12/24 00:19
Code Status As Directed
Resuscitation Status: Full Code
05/12/24 00:41
Vancomycin [Vancocin] 1,500 mg 0.9% Sodium Chloride 500 ml [Nss] 500 ml IV NOW
05/12/24 00:53
Basic Metabolic Panel Q2H
05/12/24 01:41
0.9% Sodium Chloride 1000 ml [Nss] 1,000 ml IV 250 mls/hr
Acetaminophen [Tylenol] 650 mg PO Q4HPRN PRN
Ondansetron Injectable [Zofran] 4 mg IV Q6HPRN PRN
Reg Insulin 100 Units/100 ml [Novolin R Insulin Infusion] 100 units in 100 ml IV PER PROTOCOL
Currently infusing. Continue current dose and titrate:: Yes
05/12/24 01:41
Diabetes Education Consult Routine
Reason for Consult: Insulin Instruction
Newly Diagnosed?: No
TSH Reflex To Free T4 Routine
Activity As Directed
Activity Level: Bedrest
Bedside Glucose Monitoring As Directed
Frequency: Q1H
INT (Intravenous Needle Therapy) As Directed
Intake/ Output As Directed
Frequency: Per unit guidelines
Notify MD As Directed
Notify physician if: Nurse to contact provider when glucose reaches 250 to obtain orders for D5 0.45 NaCl
Vital Signs As Directed
Frequency: Per unit guidelines
Weight As Directed
Frequency: Daily
O2 Therapy [RESP] Routine
Nasal Cannula Liter Flow: 2 LPM
Titrate/Wean O2 to maintain O2 sat greater than (%): 92
DX Deep Vein Thrombosis Video Routine
05/12/24 03:00
Lactic Acid Q4H
Comment: CANCEL 2nd LACTIC ACID IF 1st LACTIC ACID IS LESS THAN 2
05/12/24 04:00
Basic Metabolic Panel Q4
05/12/24 06:00
Electrocardiogram (*1) IN AM
Reason for Study: Chest Pain
NPO
Allow oral meds: Yes
Allow clear liquids: Sips of Clears
Complete Blood Count/No Diff IN AM
Glycohemoglobin (HgbA1c) IN AM
Magnesium IN AM
Phosphorus IN AM
05/12/24 08:00
Basic Metabolic Panel Q4
Heparin 5,000 units SC Q12
Pantoprazole [Protonix IV] 40 mg IV DAILY
05/12/24 12:00
Basic Metabolic Panel Q4
05/12/24 16:00
Basic Metabolic Panel Q4
05/12/24 20:00
Basic Metabolic Panel Q4
05/13/24 00:00
Basic Metabolic Panel Q4
Abnormal Lab Results
05/11/24 05/11/24 05/11/24
22:45 22:59 23:19
WBC 24.6 H 10^3/uL
(4.8-10.8)
MPV 10.6 H fL
(7.4-10.4)
Abs Immat Gran (auto) 0.3 H 10^3/uL
(0-0.05)
Absolute Neuts (auto) 21.5 H 10^3/uL
(1.4-6.5)
Absolute Lymphs (auto) 1.0 L 10^3/uL
(1.2-3.4)
Absolute Monos (auto) 1.9 H 10^3/uL
(0.1-0.6)
Immature Gran % 1.0 H %
(0-0.5)
Neutrophils % 87.4 H %
(42.2-75.2)
Lymphocytes % 3.9 L %
(20.5-51.1)
pH 7.27 L
(7.35-7.45)
pCO2 30 L mmHg
(35-48)
pO2 109 H mmHg
(83-108)
HCO3 13.8 L* mmol/L
(21-28)
ABG O2 Sat (Measured) 99.1 H %
(94-98)
VBG pH 7.24 L
(7.32-7.43)
VBG HCO3 16.7 L mmol/L
(22-27)
Sodium
Potassium 6.0 H mmol/L
(3.5-5.1)
Chloride 90 L mmol/L
(98-107)
Carbon Dioxide 13 L* mmol/L
(22-30)
BUN 116 H* mg/dl
(9-20)
Creatinine 3.3 H mg/dL
(0.7-1.3)
Glucose 1153 H* mg/dl
(70-99)
Lactic Acid 2.3 H mmol/L
(0.7-2.0)
Phosphorus 8.5 H mg/dl
(2.5-4.5)
Magnesium 4.5 H mg/dl
(1.6-2.3)
Urine Ketones
Urine Glucose
B-Hydroxybutyrate > 9.0 H mmol/L
(0.02-0.27)
POC Glucose > 600 H* mg/dl
(70-99)
05/11/24 05/12/24
23:27 00:53
WBC
MPV
Abs Immat Gran (auto)
Absolute Neuts (auto)
Absolute Lymphs (auto)
Absolute Monos (auto)
Immature Gran %
Neutrophils %
Lymphocytes %
pH
pCO2
pO2
HCO3
ABG O2 Sat (Measured)
VBG pH
VBG HCO3
Sodium 147 H D mmol/L
(135-145)
Potassium
Chloride
Carbon Dioxide 11 L* mmol/L
(22-30)
BUN 110 H* mg/dl
(-20)
Creatinine 2.7 H mg/dL
(0.7-1.3)
Glucose 790 H* mg/dl
(70-99)
Lactic Acid
Phosphorus
Magnesium
Urine Ketones 2+ A
(Negative)
Urine Glucose 3+ A
(Negative)
B-Hydroxybutyrate
POC Glucose
05/11/24 22:59
05/12/24 00:53
Vital Signs
Initial and Last Documented VS:
Initial Vital Signs
Pulse Resp BP Pulse Ox
112 16 83/53 99
05/11/24 22:44 05/11/24 22:44 05/11/24 22:44 05/11/24 22:44
Last Documented Vital Signs
Temp Pulse Resp BP Pulse Ox
97.4 F 115 22 105/75 99
05/11/24 23:16 05/12/24 01:30 05/12/24 01:15 05/12/24 01:30 05/12/24 01:45
<Jian Woodson, - Last Filed: 05/12/24 02:38>
Orders/Labs/Results
Orders:
Orders
05/11/24 22:54
EKG [Electrocardiogram (*1)] Urgent
Reason for Study: Fatigue / Weakness
EKG- Treatment ONCE
05/11/24 22:55
IV Insert/Care/Rem.- Treatment PRN
0.9% Sodium Chloride 1000 ml [Nss] 2,000 ml IV NOW STA
05/11/24 22:57
Bladder Scan- Treatment ONCE
Deras Placement- Treatment ONCE
Reason for insertion: Acute Retention
05/11/24 22:59
B-Hydroxybutyrate Urgent
Basic Metabolic Panel Q2H
Complete Blood Count/With Diff Urgent
Lactic Acid Q4H
Comment: CANCEL 2nd LACTIC ACID IF 1st LACTIC ACID IS LESS THAN 2
Lipase Urgent
Magnesium Urgent
Phos [Phosphorus] Urgent
Venous Blood Gas Urgent
%Oxygen/Room Air: 21
05/11/24 23:19
ABG [Arterial Blood Gas] Stat
%Oxygen/Room Air: ROOM AIR
05/11/24 23:23
Reg Insulin 100 Units/100 ml [Novolin R Insulin Infusion] 100 units in 100 ml IV NOW
05/11/24 23:27
Urinalysis Reflex To Culture Urgent
Date Specimen was Collected: 05/11/24
Time Specimen was Collected: 23:23
05/11/24 23:29
Insulin Human Regular [Novolin R] 6 units IV NOW STA
05/11/24 23:39
CR Chest Portable - 1 View Urgent
Comment:
Reason For Exam: sepsis
Reason Study Needs to be Portable: Patient Unstable
05/11/24 23:43
Cefepime HCl [Maxipime] 1,000 mg IV NOW STA
05/11/24 23:59
COVID-19 Antigen Urgent
Source: Nasal Swab
Blood Culture Urgent
FIONA Source: Blood/Venous
Specimen Description:
Influenza A+B Rapid Molecular Urgent
FIONA Source: Nasal Swab
Specimen Description:
05/12/24 00:15
Admit/Transfer Patient As Directed
Co-Sign Provider:
Level of Care: Inpatient admission
Assign to:: ICU
Physician / Group: Justin
Diagnosis: DKA
Reason for Hospitalization: DKA
Expected length of stay greater than two midnights?: Yes
ELOS- Estimated Length of Stay in days: 3
I certify the patient meets the requirements for IP care: Yes
PRN Pain Medication Management As Directed
May give lesser potent ordered pain med per pt: Yes
preference::
Protocol:: Medication orders for pain may be administered in a
manner that supports deferring to patient preference
when the pt is:
- Requesting an ordered lesser potent pain medication.
Least to most potent pain medications are defined
as: acetaminophen < NSAID < tramadol < opioids
(morphine, oxycodone, hydromorphone).
- Requesting a lesser dose of the same medication IF
ORDERED.
- Requesting a less intrusive route of administration
if both routes are prescribed by the provider (PO <
IV).
05/12/24 00:19
Code Status As Directed
Resuscitation Status: Full Code
05/12/24 00:41
Vancomycin [Vancocin] 1,500 mg 0.9% Sodium Chloride 500 ml [Nss] 500 ml IV NOW
05/12/24 00:53
Basic Metabolic Panel Q2H
05/12/24 01:41
0.9% Sodium Chloride 1000 ml [Nss] 1,000 ml IV 250 mls/hr
Acetaminophen [Tylenol] 650 mg PO Q4HPRN PRN
Ondansetron Injectable [Zofran] 4 mg IV Q6HPRN PRN
Reg Insulin 100 Units/100 ml [Novolin R Insulin Infusion] 100 units in 100 ml IV PER PROTOCOL
Currently infusing. Continue current dose and titrate:: Yes
05/12/24 01:41
Diabetes Education Consult Routine
Reason for Consult: Insulin Instruction
Newly Diagnosed?: No
TSH Reflex To Free T4 Routine
Activity As Directed
Activity Level: Bedrest
Bedside Glucose Monitoring As Directed
Frequency: Q1H
INT (Intravenous Needle Therapy) As Directed
Intake/ Output As Directed
Frequency: Per unit guidelines
Notify MD As Directed
Notify physician if: Nurse to contact provider when glucose reaches 250 to obtain orders for D5 0.45 NaCl
Vital Signs As Directed
Frequency: Per unit guidelines
Weight As Directed
Frequency: Daily
O2 Therapy [RESP] Routine
Nasal Cannula Liter Flow: 2 LPM
Titrate/Wean O2 to maintain O2 sat greater than (%): 92
DX Deep Vein Thrombosis Video Routine
05/12/24 03:00
Lactic Acid Q4H
Comment: CANCEL 2nd LACTIC ACID IF 1st LACTIC ACID IS LESS THAN 2
05/12/24 04:00
Basic Metabolic Panel Q4
05/12/24 06:00
Electrocardiogram (*1) IN AM
Reason for Study: Chest Pain
NPO
Allow oral meds: Yes
Allow clear liquids: Sips of Clears
Complete Blood Count/No Diff IN AM
Glycohemoglobin (HgbA1c) IN AM
Magnesium IN AM
Phosphorus IN AM
05/12/24 08:00
Basic Metabolic Panel Q4
Heparin 5,000 units SC Q12
Pantoprazole [Protonix IV] 40 mg IV DAILY
05/12/24 12:00
Basic Metabolic Panel Q4
05/12/24 16:00
Basic Metabolic Panel Q4
05/12/24 20:00
Basic Metabolic Panel Q4
05/13/24 00:00
Basic Metabolic Panel Q4
Abnormal Lab Results
05/11/24 05/11/24 05/11/24
22:45 22:59 23:19
WBC 24.6 H 10^3/uL
(4.8-10.8)
MPV 10.6 H fL
(7.4-10.4)
Abs Immat Gran (auto) 0.3 H 10^3/uL
(0-0.05)
Absolute Neuts (auto) 21.5 H 10^3/uL
(1.4-6.5)
Absolute Lymphs (auto) 1.0 L 10^3/uL
(1.2-3.4)
Absolute Monos (auto) 1.9 H 10^3/uL
(0.1-0.6)
Immature Gran % 1.0 H %
(0-0.5)
Neutrophils % 87.4 H %
(42.2-75.2)
Lymphocytes % 3.9 L %
(20.5-51.1)
pH 7.27 L
(7.35-7.45)
pCO2 30 L mmHg
(35-48)
pO2 109 H mmHg
(83-108)
HCO3 13.8 L* mmol/L
(21-28)
ABG O2 Sat (Measured) 99.1 H %
(94-98)
VBG pH 7.24 L
(7.32-7.43)
VBG HCO3 16.7 L mmol/L
(22-27)
Sodium
Potassium 6.0 H mmol/L
(3.5-5.1)
Chloride 90 L mmol/L
(98-107)
Carbon Dioxide 13 L* mmol/L
(22-30)
BUN 116 H* mg/dl
(9-20)
Creatinine 3.3 H mg/dL
(0.7-1.3)
Glucose 1153 H* mg/dl
(70-99)
Lactic Acid 2.3 H mmol/L
(0.7-2.0)
Phosphorus 8.5 H mg/dl
(2.5-4.5)
Magnesium 4.5 H mg/dl
(1.6-2.3)
Urine Ketones
Urine Glucose
B-Hydroxybutyrate > 9.0 H mmol/L
(0.02-0.27)
POC Glucose > 600 H* mg/dl
(70-99)
05/11/24 05/12/24
23:27 00:53
WBC
MPV
Abs Immat Gran (auto)
Absolute Neuts (auto)
Absolute Lymphs (auto)
Absolute Monos (auto)
Immature Gran %
Neutrophils %
Lymphocytes %
pH
pCO2
pO2
HCO3
ABG O2 Sat (Measured)
VBG pH
VBG HCO3
Sodium 147 H D mmol/L
(135-145)
Potassium
Chloride
Carbon Dioxide 11 L* mmol/L
(22-30)
BUN 110 H* mg/dl
(9-20)
Creatinine 2.7 H mg/dL
(0.7-1.3)
Glucose 790 H* mg/dl
(70-99)
Lactic Acid
Phosphorus
Magnesium
Urine Ketones 2+ A
(Negative)
Urine Glucose 3+ A
(Negative)
B-Hydroxybutyrate
POC Glucose
05/11/24 22:59
05/12/24 00:53
Vital Signs
Initial and Last Documented VS:
Initial Vital Signs
Pulse Resp BP Pulse Ox
112 16 83/53 99
05/11/24 22:44 05/11/24 22:44 05/11/24 22:44 05/11/24 22:44
Last Documented Vital Signs
Temp Pulse Resp BP Pulse Ox
97.4 F 115 22 105/75 99
05/11/24 23:16 05/12/24 01:30 05/12/24 01:15 05/12/24 01:30 05/12/24 01:45
<Harini Leyva PA-C - Last Filed: 05/12/24 00:11>
MDM/Problems Addressed
MDM/Problems Addressed:
39 y/o M IDDM type I
vomiting x 4 days
no abd pain, fever
weak, lethargic, dry, confused
brought in by friend
bg > 600
tachy
hypotensive 80s o arrival
afebrile
dry
bladder distention with bladder scan > 1.5 L
deras inserted and put out 1000 ml
ph 7.29
bhb 9
AG 36 with bg 1000
k 6
ARF
suspect pre or post renal obstruction
discusse dimaging with ed attending dr. woodson, did not feel necessary
will admit to ICU
signed out to hospitalist
sepsis triggered, broad spectrum abx ordered
insulin drip
<Harini Leyva PA-C - Last Filed: 05/12/24 00:11>
*Critical Care Note
Total Time (30-74mins, 75-104mins- exclusive of procedures): Not Applicable
<Jian Woodson DO - Last Filed: 05/12/24 02:38>
*Critical Care Note
Total Time (30-74mins, 75-104mins- exclusive of procedures): 30 minutes
Data Reviewed
Review of Other/Old Records Reveals: Labs (Prior labs reviewed)
ED Attending Note
<Harini Leyva PA-C - Last Filed: 05/12/24 00:11>
-
Portions of this chart may have been created with voice recognition software.� Occasional wrong word or��sound alike� substitutions may have occurred due to the inherent limitations of voice recognition software.
<Jian Woodson, DO - Last Filed: 05/12/24 02:38>
ED Attending Note
Patient seen and examined by attending physician: Yes
I performed the substantive portion of visit, reviewed & personally made and approve the management plan that is documented in note by myself or ARA.: Yes
ED Attending Note:
This is a 39-year-old male who presents with persistent vomiting. He is a diabetic. Patient states he thought he had a GI bug from his kid. Exam: Hypotensive, mucous membranes extremely dry. Awake and alert but just slightly sluggish in
responses. Assessment and plan: Labs suggest diabetic ketoacidosis. Given leukocytosis and DKA, cover with antibiotics. IV insulin. IV fluids. Admit
Discharge Plan
Departure
Patient Disposition: Admit
Date of Disposition: 05/11/24
Time of Disposition: 23:39
Admit to: ICU
Presentation/result/management discussed w/ accepting MD/DO: Hospitalist
Condition: Critical
Covid-19: Not Applicable
Discharge Problem:
Type 1 diabetes mellitus, DKA (diabetic ketoacidosis), Acute renal failure (ARF), Dehydration, Acute urinary retention
Interventions
Interventions:
*Risk Screen - Suicide Last Done: 05/12/24 01:53
*General Assessment Last Done: 05/11/24 23:31
*Neglect/Abuse Screening Last Done: 05/11/24 23:31
*ED COVID-19 Vaccine History Last Done: 05/12/24 01:53
*Nursing Disposition Last Done: 05/12/24 01:30
ED- Neurological Assessment Last Done: 05/11/24 23:30
Discharge Date and Time
Discharge Date/Time: 05/12/24 01:32
[2024-05-11 23:05] LABS: Venous Blood Gas B.E. -10.1 mmol/L (-4 to +4); Venous Blood Gas HCO3 16.7 mmol/L (22-27); Venous Blood Gas O2 Sat % 52.5 %; Venous Blood Gas pCO2 39 mmHg (35-48); Venous Blood Gas pH 7.24 (7.32-7.43); Venous Blood Gas pO2 34 mmHg (30-50)
[2024-05-11 23:19] LABS: Lactic Acid 2.3 mmol/L (0.7-2.0)
[2024-05-11 23:23] LABS: % Basophils 0.1 % (0-2); % Lymphocytes 3.9 % (20.5-51.1); % Monocytes 7.6 % (1.7-9.3); % Neutrophils 87.4 % (42.2-75.2); Absolute Immature Granulocytes 0.3 10^3/uL (0-0.05); Absolute Monocytes 1.9 10^3/uL (0.1-0.6); Absolute Neutrophils 21.5 10^3/uL (1.4-6.5); Hemoglobin 14.5 g/dL (13.0-18.0); Mean Corp Hgb Conc. 34.5 g/dL (33.0-37.0); Mean Corpuscular Hgb 30.1 pg (27.0-31.0); Mean Corpuscular Volume 87.1 fL (80.0-94.0); Mean Platelet Volume 10.6 fL (7.4-10.4); Nucleated Red Blood Cells % 0 % (-); Platelet Count 340 10^3/uL (130-400); Red Blood Cell Count 4.82 10^6/uL (4.70-6.10); Red Cell Dist. Width 11.8 % (11.5-14.5); White Blood Cell Count 24.6 10^3/uL (4.8-10.8)
[2024-05-11 23:24] LABS: Blood Urea Nitrogen 116 mg/dl (9-20); Calcium 9.1 mg/dl (8.4-10.2); Carbon Dioxide 13 mmol/L (22-30); Chloride 90 mmol/L (98-107); Estimated Creatinine Clearance 28 ml/min; Lipase 28 U/L (23-300); Magnesium 4.5 mg/dl (1.6-2.3); Phosphorus 8.5 mg/dl (2.5-4.5); Sodium 139 mmol/L (135-145); eGFR 23.58
[2024-05-11 23:26] LABS: B.E. -11.8 mmol/L; O2 Saturation % 99.1 % (94-98); PCO2 30 mmHg (35-48); PO2 109 mmHg (83-108); pH 7.27 (7.35-7.45)
[2024-05-11 23:30] LABS: HCO3 13.8 mmol/L (21-28)
[2024-05-11 23:40] LABS: Urine Albumin Negative (Neg - Trace); Urine Bilirubin Negative (Negative); Urine Character Clear (Clear); Urine Color Yellow; Urine Glucose 3+ (Negative); Urine Ketone 2+ (Negative); Urine Leukocyte Negative (Negative); Urine Nitrite Negative (Negative); Urine Occult Blood Negative (Negative); Urine Specific Gravity 1.015 (<1.030); Urine Urobilinogen Negative (Neg - 1+)
[2024-05-11 23:42] LABS: Glucose 1153 mg/dl (70-99)
[2024-05-11] MEDS: NOVOLIN R INSULIN INFUSION 100 IV (23:42)
[2024-05-11] MEDS: NOVOLIN R 6 UNITS IV (23:42)
[2024-05-11 23:49] LABS: B-Hydroxybutyrate > 9.0 mmol/L (0.02-0.27)
[2024-05-12] VITALS (37 sets, daily range): BP systolic 95–168; BP diastolic 36–103; BMI 21.8
[2024-05-12] MEDS: MAXIPIME 1000 MG IV (00:18)
[2024-05-12 00:19] LABS: COVID-19 Antigen Negative (Negative)
--- NOTE | 2024-05-12 00:31 | HPS.HSE ---
Family Physician
-
Family Physician: Edna Cruz MD
Chief Complaint
-
N/V, Abd Pain
History of Present Illness
Patient is a 39y M with PMH significant for DM-I with gastroparesis who presents to ED complaining of N/V and abdominal pain since Thursday. Patient states that his son has been ill with GI symptoms recently. He has had central abdominal
discomfort, multiple episodes of non-bloody emesis and a few loose stools since Thursday. He has been checking his glucose at home and states that it has been mostly in the 200s. This evening, patient was lethargic / somewhat confused and was
brought to the ED for further evaluation.
Patient denies any recent medication changes. He states that he has been taking his insulin as prescribed.
Medical History
Past Medical History
Past Medical History: Reports Other
Additional Past Medical History:
DM-I with Gastroparesis
Anxiety / Depression
Past Surgical History: Reports Other
Additional Past Surgical History:
Septoplasty
Social History
Tobacco: Non-smoker
Alcohol: None
Drug: Marijuana (Patient denies daily use.)
Family History
Family History: Other (Mother: SLE)
Allergies / Home Medications
Allergies reflects when Allergies were last updated in [facility].
Home Medications with original date entered in [facility]
Allergy/Medication List:
Allergies
Allergy/AdvReac Type Severity Reaction Status Date / Time
Penicillins Allergy Unknown Verified 05/11/24 22:44
prednisone Allergy Unknown Verified 05/11/24 22:44
Home Medications
insulin glargine 100 unit/mL subcutaneous solution (Lantus U-100 Insulin) 20 units SC HS 01/10/12
insulin lispro 100 unit/mL subcutaneous pen (Humalog KwikPen (U-100) Insulin) 2 - 3 sliding scale dose SC AC 01/10/12
bupropion HCl 150 mg 24 hr tablet, extended release (Wellbutrin XL) 150 mg PO DAILY 02/08/24
buspirone 15 mg tablet 15 mg PO TID 02/08/24
Review of Systems
-
History Source: Patient
A 12 point ROS was completed and negative except as noted: Yes
Constitutional: Reports Fatigue; Denies Fever or Chills
EENT: Denies Sore Throat
Respiratory: Denies Cough or Trouble Breathing
Cardiac: Denies Chest Pain or Palpitations
Abdomen/GI: Reports Abdominal Pain, Nausea, Vomiting and Diarrhea; Denies Bloody Stools or Black Stools
: Denies Dysuria, Frequency or Flank Pain
Musculoskeletal: Denies Joint Pain or Edema
Neurological: Denies Dizzy or Headache
Psych: Denies Depression or Anxiety
Physical Exam
Vital Signs
Vital Signs
Temp Pulse Resp BP Pulse Ox
97.4 F 101 22 123/76 100
05/11/24 23:16 05/12/24 00:13 05/12/24 00:13 05/12/24 00:13 05/12/24 00:13
Physical Exam
General: Other (39y M fatigued - wakes and answers questions appropriately.)
HEENT: Other (Dry MM. Neck supple.)
Respiratory: Clear; No Wheezes, Rales or Rhonchi
Cardiac: S1/S2 and Tachycardia; No Murmur
GI: Soft, Non Tender, Non Distended and Normal Bowel Sounds
Musculoskeletal: No Clubbing, No Cyanosis and No Edema
Neuro: Nonfocal/grossly intact
Laboratory Results
-
05/11/24 22:59
Laboratory Results
pH 7.27 (7.35-7.45) L 05/11/24 23:19
pCO2 30 mmHg (35-48) L 05/11/24 23:19
pO2 109 mmHg (83-108) H 05/11/24 23:19
HCO3 13.8 mmol/L (21-28) L* 05/11/24 23:19
Lactic Acid 2.3 mmol/L (0.7-2.0) H 05/11/24 22:59
Lipase 28 U/L (23-300) 05/11/24 22:59
Impression/Plan
-
A/P: Patient is a 39y M with PMH significant for DM-I with gastroparesis who presents to ED complaining of 3 days of abdominal pain and N/V and now fatigued / lethargic.
DM-I with DKA
Anion Gap Metabolic Acidosis secondary to the above
Metabolic Alkalosis
Acute TME secondary to the above
- Admit to ICU for further evaluation and treatment.
- Aggressive IVF replacement.
- IV insulin infusion. Fingerstick glucose q1 hour and adjust as needed.
- Follow labs / lytes q 4 and adjust IVFs as needed.
- Follow for clinical improvement.
- Transition to subcut insulin regimen once anion gap is normalized.
- DM education.
N/V/D
- Differential includes viral gastroenteritis (son recently ill with similar symptoms), gastroparesis flare, cannabinoid hyperemesis, etc.
- Observe off of further abx as no clear indication of bacterial infection here.
- Supportive care as noted above with IVFs, antiemetics, etc.
- Would likely avoid cannabis entirely in the future.
Anxiety / Depression
- Stable. Hold PO meds for now.
- Resume once DKA improved / tolerating PO intake.
DVT Prophylaxis: Subcut Heparin
Code Status: Full
[2024-05-12] MEDS: VANCOCIN 530 MG IV (01:22)
[2024-05-12 01:41] LABS: Blood Urea Nitrogen 110 mg/dl (9-20); Calcium 8.5 mg/dl (8.4-10.2); Carbon Dioxide 11 mmol/L (22-30); Chloride 106 mmol/L (98-107); Estimated Creatinine Clearance 34 ml/min; Glucose 790 mg/dl (70-99); Sodium 147 mmol/L (135-145)
--- NOTE | 2024-05-12 02:00 | PTCARENOTE ---
pt arrived to unit, insulin 6.5ml following DKA protocol, vanco gtt, pt was able to slide himself over to bed from stretcher, AOx3, lethargic, sinus tach on the monitor, + pulses, lungs clear on RA SATs 95%, BSx4 hypoactive, pt has hiccups and c/o
nausea, deras clear yellow output, skin dry and intact, 20G R hand, 20G RAC, 18G LAC, pt able to make needs know, call castañeda within reach, family friend @ bedside, otherwise refer to documentation
[2024-05-12 02:27] LABS: Glucose - Point of Care > 600 mg/dl (70-99)
[2024-05-12] MEDS: NSS 1000 IV ×2 (02:52→06:48)
[2024-05-12] MEDS: LIDOCAINE URO-JET 2% 1 SYRINGE TOPICAL (03:08)
[2024-05-12] MEDS: TYLENOL 650 MG PO (03:08)
[2024-05-12 03:25] LABS: Glucose 246 mg/dl (70-99)
[2024-05-12 03:27] LABS: Lactic Acid 0.7 mmol/L (0.7-2.0)
--- NOTE | 2024-05-12 03:30 | PTCARENOTE ---
pt c/o 03/15 penial pain from deras, requested deras be removed, HEARING THERAPY TEACHER @ bedside pt educated on what to expect if deras removed and pt not voiding, pt aware and dc order placed, deras removed 0310, pt voided 20min after and saturated Covidien, pain meds
given per SEP, several venous glucose labs drawn, otherwise refer to documentation.
[2024-05-12 04:00] LABS: TSH Reflex To Free T4 < 0.02 uIU/ml (0.47-4.68)
[2024-05-12 04:10] LABS: Glucose - Point of Care 539 mg/dl (70-99)
[2024-05-12 04:29] LABS: Free T4 1.67 ng/dl (0.78-2.19)
[2024-05-12 04:34] LABS: Hematocrit 38.2 % (39.0-52.0); Hemoglobin 13.7 g/dL (13.0-18.0); Mean Corp Hgb Conc. 35.9 g/dL (33.0-37.0); Mean Corpuscular Hgb 31.1 pg (27.0-31.0); Mean Corpuscular Volume 86.6 fL (80.0-94.0); Mean Platelet Volume 10.4 fL (7.4-10.4); Platelet Count 289 10^3/uL (130-400); Red Blood Cell Count 4.41 10^6/uL (4.70-6.10); Red Cell Dist. Width 11.6 % (11.5-14.5); White Blood Cell Count 27.3 10^3/uL (4.8-10.8)
[2024-05-12 04:43] LABS: Magnesium 4.4 mg/dl (1.6-2.3); Phosphorus 3.4 mg/dl (2.5-4.5)
[2024-05-12 04:47] LABS: Glucose 464 mg/dl (70-99)
[2024-05-12 04:53] LABS: Blood Urea Nitrogen 105 mg/dl (9-20); Calcium 8.7 mg/dl (8.4-10.2); Carbon Dioxide 19 mmol/L (22-30); Chloride 111 mmol/L (98-107); Estimated Creatinine Clearance 41 ml/min; Glucose 464 mg/dl (70-99); Potassium 4.7 mmol/L (3.5-5.1); Sodium 152 mmol/L (135-145); eGFR 38.36
[2024-05-12 05:15] LABS: Glucose - Point of Care 402 mg/dl (70-99)
[2024-05-12 05:42] LABS: Glucose 396 mg/dl (70-99)
[2024-05-12 06:21] LABS: Glucose - Point of Care 365 mg/dl (70-99)
[2024-05-12 07:15] LABS: Glucose - Point of Care 298 mg/dl (70-99)
[2024-05-12] MEDS: PROTONIX IV 40 MG IV (08:11)
[2024-05-12] MEDS: HEPARIN 5000 UNITS SC (08:11)
[2024-05-12] MEDS: NSS (PRESERVATIVE FREE) 10 ML IV (08:11)
[2024-05-12 08:32] LABS: Glucose - Point of Care 204 mg/dl (70-99)
--- NOTE | 2024-05-12 08:40 | PN.DE.MGMTRT ---
Insulin Management
- -
05/12/2024 Diabetes Management Consult
Patient admitted 05/11 with c/o blood sugar problem, n&v found to be in DKA. PMH type 1 diabetes. Patient does smoke marijuana. Patient admitted 02/09/24 for DKA, at that time A1C 8%. Prior to admission was taking lantus 20 units @ hs with humalog
2 to 3 units SS AC.
A1C 9.2%, cr 2.2, eGFR 38.36.
Patient is awake alert and oriented, c/o fatigue but able to discuss diabetes management. States he sees Dr. Branham, endocrine, for ongoing diabetes care, most recent visit 3 months ago. He states when he started to feel sick he stopped his
insulin. Discussed how important it is, even when sick, to test glucose more often and continue insulin. Could consider lower dose but will always need insulin.
Currently on DKA insulin infusion range 4 to 6 units per hour. GAP on admission 36, now 16. Due for repeat BMP@ 12:30.
Will follow and assess for readiness to transition from IV insulin to subcutaneous insulin when GAP closed.
Discussed with patients nurse.
Diabetes History
- -
Type of Diabetes: 1
Pre-Admission Diabetes Regimen
05/11/24 05/11/24 05/12/24
22:59 23:14 00:53
Creatinine 3.3 H Cancelled 2.7 H
05/12/24 05/12/24
03:00 04:15
Creatinine Cancelled 2.2 H
Insulin Pump Settings
IP Diabetes Regimen
05/11/24 05/11/24 05/11/24
22:45 22:59 23:14
Glucose 1153 H* Cancelled
POC Glucose > 600 H*
05/12/24 05/12/24 05/12/24
00:53 02:16 02:41
Glucose 790 H* 246 H
POC Glucose > 600 H*
05/12/24 05/12/24 05/12/24
03:00 03:58 04:15
Glucose Cancelled 464 H*
POC Glucose 539 H*
05/12/24 05/12/24 05/12/24
04:15 05:03 05:13
Glucose 464 H* 396 H
POC Glucose 402 H
05/12/24 05/12/24 05/12/24
06:10 07:03 08:20
Glucose
POC Glucose 365 H 298 H 204 H
Patient Education
[2024-05-12 09:09] LABS: Blood Urea Nitrogen 98 mg/dl (9-20); Calcium 8.3 mg/dl (8.4-10.2); Carbon Dioxide 23 mmol/L (22-30); Chloride 117 mmol/L (98-107); Estimated Creatinine Clearance 56 ml/min; Glucose 165 mg/dl (70-99); Potassium 4.7 mmol/L (3.5-5.1); Sodium 156 mmol/L (135-145); eGFR 56.21
--- NOTE | 2024-05-12 09:30 | PTCARENOTE ---
Assumed care of patient at 0700. Patient lethargic. Arousable to voice. Oriented x3. Flat/withdrawn. ST on tele monitor. Lung sounds diminished throughout. Pulse ox 99% on RA. +BS. Denies n/v at current time. No bm. Indwelling deras catheter removed
overnight.. Voiding via urinal. DKA protocol maintained. Q1hr accucheck. POC glucose <250. IVFs switch to D51/2NS w/ 20KCl. VSS. Repeat BMP sent.
[2024-05-12] MEDS: D5/0.45%NSS with KCL 20 MEQ 1000 IV ×3 (09:33→17:41)
[2024-05-12 09:46] LABS: Glucose - Point of Care 138 mg/dl (70-99)
[2024-05-12 10:19] LABS: Glycohemoglobin (HgbA1c) 9.2 % (4.0-5.6)
--- NOTE | 2024-05-12 10:21 | CON.INTV ---
Consultation
Consultation Request
Date/Time Consultation Requested: 05/12/2024
Date/Time Consultation Performed: 05/12/2024
Requesting Provider: Dr. Anderson
Performing Provider: Dr. Yefri Perez
Reason for Consultation: Diabetes ketoacidosis
Medical History
-
History of Present Illness:
39-year-old man with history of type 1 diabetes, gastroparesis who presented to the emergency room on 05/11/2024 complaining of nausea, vomiting and abdominal pain since Thursday. Exposed to his son with a GI illness at home. Does report some
nonbloody vomiting and also diarrhea.
Denies any fevers.
His blood sugars have been elevated. Developed confusion, lethargy and was brought into the emergency room for evaluation.
Patient was found to be on diabetes ketoacidosis. Started on IV fluid resuscitation as well as insulin drip.
Denies chest pain, denies shortness of breath.
Patient reports compliance with his insulin
Past Medical History
Past Medical History: Other (See assessment and plan)
Social History
Tobacco: Non-smoker
Alcohol: None
Drug: Marijuana (Occasional)
Personal:
Living: With Family
Family History
Family History: Reviewed & Not Pertinent
Allergies / Home Medications
Allergies
Allergy/AdvReac Type Severity Reaction Status Date / Time
Penicillins Allergy Unknown Verified 05/11/24 22:44
prednisone Allergy Unknown Verified 05/11/24 22:44
Home Medications
�Medication �Instructions �Recorded �Confirmed �Last Taken �Type
insulin glargine 100 unit/mL 20 units SC HS 01/10/12 05/12/24 02/07/24 History
subcutaneous solution (Lantus
U-100 Insulin)
insulin lispro 100 unit/mL 2 - 3 sliding scale dose SC AC 01/10/12 02/08/24 02/08/24 History
subcutaneous pen (Humalog KwikPen
(U-100) Insulin)
bupropion HCl 150 mg 24 hr tablet, 150 mg PO DAILY 02/08/24 05/12/24 02/07/24 History
extended release (Wellbutrin XL)
buspirone 15 mg tablet 15 mg PO TID 02/08/24 05/12/24 02/07/24 History
Review of Systems
-
History Source: Patient
All other systems: Negative unless noted
Vitals / Labs / Diagnostic Testing
Vital Signs
Temp Pulse Resp BP Pulse Ox
97.6 F 110 19 137/78 100
05/12/24 07:52 05/12/24 10:00 05/12/24 10:00 05/12/24 10:00 05/12/24 10:00
Lab Data
05/12/24 04:15
Laboratory Results
05/11/24 05/11/24
22:55 23:19
pH Cancelled 7.27 L
pCO2 Cancelled 30 L
pO2 Cancelled 109 H
HCO3 Cancelled 13.8 L*
O2 Delivery Level Cancelled
Microbiology
05/11/24 23:59 Nasal Swab Influenza Types A & B (PINO) - Final
Negative for Influenza A & B, NAAT
Negative results must be combined with clinical observations
and patient history.
Nucleic Acid Amplification test (NAAT)performed on the
[employer] platform.
Diagnostic Testing:
Physical Exam
-
HEENT: Normocephalic
Cardiovascular: S1/S2
Respiratory: Clear and Non-Labored Respirations
GI: Soft and Non Distended
Neurology: Awake, Oriented, AO x 3 and No Motor Deficits
Skin: Dry and Other (Multiple tattoos)
General: Comfortable
Assessment
-
39-year-old man with type 1 diabetes, on subcu insulin, admitted with nausea, vomiting. Became lethargic and confused-found to be dehydrated, on diabetes ketoacidosis. Admitted to the critical care unit for further care.
Diabetes ketoacidosis
Nausea/vomiting/diarrhea: Possible gastroenteritis
Acute kidney injury-likely due to volume depletion
Hyper natremia-volume depletion
Leukocytosis likely reactive
History of anxiety and depression
Assessment and plan:
Critically ill, requiring aggressive fluid resuscitation as well as insulin drip per DKA protocol.
Possible trigger includes gastroenteritis.
Patient reports compliance with insulin.
Anion gap improving.
Remains hypernatremic.
-
Continue insulin drip
Hourly Accu-Cheks
BMPs every 4 hours
Renal function improving.
IV fluid has been transition to D5 and a half at 250 cc an hour.
Follow anion gap still open
-
Eventual diabetes nurse practitioner consultation
-
Leukocytosis likely reactive. Doubt infectious.
Follow CBC
Follow fever curve.
-
N.p.o. for now.
Will advance diet as he continues to improve
Antiemetics as needed
-
DVT prophylaxis subcu Lovenox
-
Critical care statement: A total of 31 minutes of critical care time was provided for this patient today. This includes management of unstable vital signs, evaluation of the patient at bedside, reviewing the patient's pertinent medical records
including radiographs, microbiology, laboratory evaluations and discussion with primary team, critical care nursing, and respiratory therapy.
[2024-05-12 10:46] LABS: Glucose - Point of Care 147 mg/dl (70-99)
--- NOTE | 2024-05-12 10:55 | CM ---
CM following re: discharge planning.
Reviewed pt's chart, met with pt. Pt's mother and pt's friend at bedside.
Pt is a 39 year old male, admitted with primary dx of Diabetes ketoacidosis
Pt reports he lives alone in a 2SH, has 6 year old son. 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 Pt has no insurance. information regarding medical assistance and [employer] insurance provided. Pt stated he does not qualify
for medicaid and will apply for [employer] insurance.
PCP: Edna Cruz
Pharmacy: [facility].
D/C plan: home with anticipated no needs. Mother to transport at discharge.
CM will follow with discharge plan updates as hospitalization progresses
[2024-05-12 11:48] LABS: Glucose - Point of Care 199 mg/dl (70-99)
--- NOTE | 2024-05-12 12:38 | PTCARENOTE ---
Minor changes in assessment. Patient more alert. VSS. Repeat BMP sent. DKA protocol maintained.
[2024-05-12 12:43] LABS: Glucose - Point of Care 200 mg/dl (70-99)
[2024-05-12 12:57] LABS: Blood Urea Nitrogen 79 mg/dl (9-20); Calcium 8.2 mg/dl (8.4-10.2); Carbon Dioxide 23 mmol/L (22-30); Chloride 119 mmol/L (98-107); Estimated Creatinine Clearance 64 ml/min; Glucose 213 mg/dl (70-99); Potassium 4.8 mmol/L (3.5-5.1); Sodium 153 mmol/L (135-145); eGFR > 60.00
--- NOTE | 2024-05-12 13:04 | W.PN.HOSP.TC ---
Addendum entered and electronically signed by Toby Houston MD 05/12/24 14:13:
Assessment and Plan
DKA and hypernatremic
-Trigger Viral GE
-Insulin gtt
-Change to 1/2NS
-Once sugars are <250-200, change to dextrose containing fluids
-NPO
-Q4 bmp until gap closed x2 then start diet and transition to long and short acting insulin
Diabetes type 1
-Endo consult once out of ICU
-Accucchecks
-SSI
-BG 140-180
Time 53mins
Original Note:
Today's Communication/Plan
-
continue IV insulin
continue IVF with glucose and K as needed
symptomatic managment
Assessment / Plan
Assessment / Plan
impression: 39 year old male with pmh of DM1 presents for severe DKA with BG of 1153, hypernatremia, dehydration and TME.
Plan:
#Diabetes ketoacidosis
improving
likely triggered by not taking insulin for days and viral GI infection
Blood glucose on admission 1153, with an anion gap of 36
Started on regular insulin 100 units per 100 mL
Initially normal saline to 250 mL/h
Was transition to half-normal saline with glucose and potassium at 250 mL/h
Anion gap this morning 29
BG in 200s today
Currently patient reports no nausea or vomiting, no abdominal pain
Currently n.p.o., will transition to a diet once anion gap closes
hourly accu-checks
BMP q4H
antiemetics PRN
Diabetic nurse practitioner consult
#hypernatremia
etiology likely secondary to dehydration
Corrected sodium 159
Continue half-normal saline 250 mL
#leukocytosis
Likely reactive
no obvious source of infection
pt afebrile, follow fever curve
Daily CBC
#viral gastroenteritis
resolved
no nausea, vomiting or diarrhea
Likely exacerbating factor for DKA
Diet: NPO
DVT ppx: subc lovenox
Full code
Anticipated Discharge: > 48 hours
Subjective/Interval History
-
Date of Service: May 12, 2024
improving
Objective Data
-
Labs:
Laboratory Results
05/12/24 05/12/24 05/12/24
00:53 02:41 03:00
WBC
Hgb
Hct
Plt Count
Sodium 147 H D Cancelled
Potassium 5.0 Cancelled
Chloride 106 Cancelled
Carbon Dioxide 11 L* Cancelled
BUN 110 H* Cancelled
Creatinine 2.7 H Cancelled
Glucose 790 H* 246 H Cancelled
Calcium 8.5 Cancelled
05/12/24 05/12/24 05/12/24
04:15 04:15 05:13
WBC 27.3 H
Hgb 13.7
Hct 38.2 L
Plt Count 289
Sodium 152 H
Potassium 4.7
Chloride 111 H
Carbon Dioxide 19 L
BUN 105 H*
Creatinine 2.2 H
Glucose 464 H* 464 H* 396 H
Calcium 8.7
05/12/24 05/12/24 05/12/24
08:30 12:28 16:00
WBC
Hgb
Hct
Plt Count
Sodium 156 H 153 H Pending
Potassium 4.7 4.8 Pending
Chloride 117 H 119 H Pending
Carbon Dioxide 23 23 Pending
BUN 98 H 79 H Pending
Creatinine 1.6 H 1.4 H Pending
Glucose 165 H 213 H Pending
Calcium 8.3 L 8.2 L Pending
05/12/24
20:00
WBC
Hgb
Hct
Plt Count
Sodium Pending
Potassium Pending
Chloride Pending
Carbon Dioxide Pending
BUN Pending
Creatinine Pending
Glucose Pending
Calcium Pending
Vital Signs:
Vital Signs
Temp Pulse Resp BP Pulse Ox
97.9 F 102 24 153/48 100
05/12/24 11:59 05/12/24 12:00 05/12/24 12:00 05/12/24 12:00 05/12/24 12:00
I&O
05/11/24 05/12/24 05/13/24
06:59 06:59 06:59
Intake Total 1508.0 / 1762.0 1514 / 1514
Output Total 2100 / 2100 700 / 700
Balance -592.0 / -338.0 814 / 814
Review of Systems
-
History Source: Patient
Constitutional: Reports Fatigue
Respiratory: Reports No Symptoms
Cardiac: Reports No Symptoms
Abdomen/GI: Reports No Symptoms
Physical Exam
-
General: No Apparent Distress and Comfortable
Respiratory: Clear to Auscultation
Cardiac: Regular Rhythm and S1/S2
GI: Soft, Nontender and Nondistended
Musculoskeletal: No Edema
Skin: Warm and Dry
Neuro: Awake, Alert, Oriented and AO x 3
Psych: Calm and Intact Judgement/Insight
Data Reviewed
-
Labs: Labs Reviewed by me and Discussed with Physician
[2024-05-12 13:39] LABS: Glucose - Point of Care 268 mg/dl (70-99)
[2024-05-12 14:48] LABS: Glucose - Point of Care 222 mg/dl (70-99)
--- NOTE | 2024-05-12 15:39 | PTCARENOTE ---
No changes in assessment. Next BMP @ 1630. Discussed plan of care with certified lactation educator. If gap closed, plan to transition patient off DKA protocol at 2200.
[2024-05-12 15:48] LABS: Glucose - Point of Care 234 mg/dl (70-99)
[2024-05-12 16:45] LABS: Glucose - Point of Care 225 mg/dl (70-99)
[2024-05-12 17:06] LABS: Blood Urea Nitrogen 60 mg/dl (9-20); Calcium 7.8 mg/dl (8.4-10.2); Carbon Dioxide 25 mmol/L (22-30); Chloride 120 mmol/L (98-107); Estimated Creatinine Clearance 74 ml/min; Glucose 229 mg/dl (70-99); Potassium 4.9 mmol/L (3.5-5.1); Sodium 154 mmol/L (135-145); eGFR > 60.00
[2024-05-12] MEDS: LOVENOX 40 MG SC (17:42)
[2024-05-12 17:52] LABS: Glucose - Point of Care 185 mg/dl (70-99)
[2024-05-12] MEDS: NOVOLIN R INSULIN INFUSION 100 IV (18:33)
[2024-05-12 18:45] LABS: Glucose - Point of Care 233 mg/dl (70-99)
[2024-05-12] MEDS: LANTUS 0.2 UNITS SC (21:40)
[2024-05-12 21:42] LABS: Glucose - Point of Care 224 mg/dl (70-99)
[2024-05-12] MEDS: NOVOLOG FLEXPEN-MODERATE RESISTANCE SC (23:59)
[2024-05-13] VITALS (17 sets, daily range): BP systolic 102–154; BP diastolic 45–92; BMI 21.8
--- NOTE | 2024-05-13 00:03 | PTCARENOTE ---
05/12/241999 - received patient from [facility], patient resting in bed with mom at bedside. patient has mild complaints of nausea with no vomiting
prn zofran given. Insulin gtt remains at 3 unit/hr. plsn of care, give lantus at ten, turn off insulin at midnight. \\
Per CHICKEN CUTTER, will shut off ivf at this time as well, patient advanced to clear liquids. no need for blood work, will check labs per CHICKEN CUTTER in am .
05/13/24 - patients blood sugar 144, insulin gtt stopped, no insulin needed either, patient has no nausea at this time, sleeping comfortably.
[2024-05-13 00:05] LABS: Glucose - Point of Care 146 mg/dl (70-99)
[2024-05-13 05:14] LABS: Hematocrit 31.4 % (39.0-52.0); Mean Corpuscular Hgb 31.6 pg (27.0-31.0); Mean Corpuscular Volume 90.2 fL (80.0-94.0); Mean Platelet Volume 10.3 fL (7.4-10.4); Platelet Count 166 10^3/uL (130-400); Red Blood Cell Count 3.48 10^6/uL (4.70-6.10); White Blood Cell Count 14.8 10^3/uL (4.8-10.8)
[2024-05-13] MEDS: NOVOLOG FLEXPEN-MODERATE RESISTANCE 5 UNITS SC ×2 (05:36→21:40)
[2024-05-13 05:46] LABS: Glucose - Point of Care 261 mg/dl (70-99)
[2024-05-13 06:04] LABS: Blood Urea Nitrogen 34 mg/dl (9-20); Calcium 8.4 mg/dl (8.4-10.2); Carbon Dioxide 29 mmol/L (22-30); Chloride 113 mmol/L (98-107); Estimated Creatinine Clearance 81 ml/min; Glucose 272 mg/dl (70-99); Sodium 148 mmol/L (135-145); eGFR > 60.00
--- NOTE | 2024-05-13 06:20 | PTCARENOTE ---
patient resting ,no further c/o nausea, npo order changed to clear liquid, patient tolerating well. Labs drawn, gap is 6, STONEMASON APPRENTICE aware,
insulin gtt off since midnight, 6am BG 261, received 5 units. pt voided 800 yellow urine, no further needs, personal belongings within reach
--- NOTE | 2024-05-13 07:30 | PN.DE.MGMTRT ---
Insulin Management
- -
05/13/2024: Diabetes Management F/U:
Patient admitted 05/11 with c/o blood sugar problem, n&v found to be in DKA. PMH type 1 diabetes. Patient does smoke marijuana. Patient admitted 02/09/24 for DKA, at that time A1C 8%, current A1C 9.2%, cr 2.2, eGFR 38.36. Prior to admission was
taking Lantus 20 units @ hs with Humalog 2 to 3 units SS AC.
States he sees Dr. Branham, endocrine, for ongoing diabetes care, most recent visit 3 months ago. He states when he started to feel sick he stopped his insulin. Discussed how important it is, even when sick, to test glucose more often and continue
insulin. Could consider lower dose but will always need insulin.
Patient is awake alert and oriented, sitting up in bed, able to discuss diabetes management.
Was transitioned off DKA insulin infusion last evening. Received Lantus 20 units @ HS, FBG 272(V) this AM.
Will increase Lantus to 25 units @ HS. Pt received 5 units NovoLog @ 5AM for a blood sugar of 261
Currently on clear liquid diet, plan to adv diet this AM. Will increase AC NovoLog to 6 units(pt uses SS, takes 8-10 units AC)
Will follow and adjust insulin further if needed. Discussed with patient and nurse at bedside.
Pt stable for discharge from diabetes stand point. Meds at d/c: Lantus 25 units @ HS and NovoLog SS
Diabetes History
- -
Type of Diabetes: 1
Pre-Admission Diabetes Regimen
05/12/24 05/12/24 05/12/24
08:30 12:28 16:34
Creatinine 1.6 H 1.4 H 1.2
05/12/24 05/13/24 05/13/24
20:00 04:21 05:32
Creatinine Cancelled Cancelled 1.1
Lab Results
Hemoglobin A1c 9.2 % (4.0-5.6) H 05/12/24 04:15
Insulin Pump Settings
IP Diabetes Regimen
05/12/24 05/12/24 05/12/24
08:20 08:30 09:35
Glucose 165 H
POC Glucose 204 H 138 H
05/12/24 05/12/24 05/12/24
10:34 11:36 12:28
Glucose 213 H
POC Glucose 147 H 199 H 200 H
05/12/24 05/12/24 05/12/24
13:28 14:36 15:36
Glucose
POC Glucose 268 H 222 H 234 H
05/12/24 05/12/24 05/12/24
16:32 16:34 17:40
Glucose 229 H
POC Glucose 225 H 185 H
05/12/24 05/12/24 05/12/24
18:34 20:00 21:21
Glucose Cancelled
POC Glucose 233 H 224 H
05/12/24 05/13/24 05/13/24
23:48 04:21 05:29
Glucose Cancelled
POC Glucose 146 H 261 H
05/13/24
05:32
Glucose 272 H
POC Glucose
Meal type: Breakfast
Patient Education
[2024-05-13 07:49] LABS: Glucose - Point of Care 215 mg/dl (70-99)
--- NOTE | 2024-05-13 07:59 | PTCARENOTE ---
Assumed care of pt at 0715 following shift report. Pt awake and resting quietly in bed. Denies c/o pain, SOB or nausea.Tolerating clear liquid diet and requesting that his diet be advanced- TT to DM ELECTRONICS WARFARE TECHNICIAN as well as hospitalist/resident. Physical
assessment completed as documented. Using urinal to void in large quantities. Call garry w/in pt reach. Safe environment maintained.
[2024-05-13] MEDS: NOVOLOG FLEXPEN 6 UNITS SC ×3 (08:44→18:18)
[2024-05-13] MEDS: NOVOLOG FLEXPEN-MODERATE RESISTANCE 3 UNITS SC ×2 (08:45→18:19)
[2024-05-13] MEDS: PROTONIX IV 40 MG IV (09:14)
[2024-05-13] MEDS: NSS (PRESERVATIVE FREE) 10 ML IV (09:14)
--- NOTE | 2024-05-13 09:35 | PTCARENOTE ---
Pt OOB in chair. Generalized weakness noted and pt reports none specific 'don't feel quite right'. Denies pain, nausea and SOB. Pt assisted w/ repositioning self in chair to more comfortable position, pt declining completing am hygiene 'maybe later'
--- NOTE | 2024-05-13 11:06 | W.PN.INTV ---
Today's Communication / Plan
Recommendations
Continue subcu insulin
Monitor electrolytes
Encourage oral intake
Transferred to [facility]
Sign off
Assessment
-
39-year-old man with type 1 diabetes, on subcu insulin, admitted with nausea, vomiting. Became lethargic and confused-found to be dehydrated, on diabetes ketoacidosis. Admitted to the critical care unit for further care.
Diabetes ketoacidosis
Nausea/vomiting/diarrhea: Possible gastroenteritis
Acute kidney injury-likely due to volume depletion
Hyper natremia-volume depletion
Leukocytosis likely reactive
History of anxiety and depression
Assessment and plan:
DKA has resolved.
Back on subcu insulin
Tolerating diet
IV fluid has been discontinued
-
Still feels dry
Hypernatremic, encourage oral intake of fluids
-
Leukocytosis likely reactive. Doubt infectious.
Improving
Afebrile.
Hemodynamically stable
-
Diabetic diet, tolerated
-
DVT prophylaxis subcu Lovenox
-
No additional recommendation from the critical care perspective. Transfer to [facility].
Sign off
Subjective Dataa
Subjective Data
Date of Service:
Date of Service: May 13, 2024
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
Subjective:
Patient eating breakfast
Denies any particular complaints
No further vomiting or diarrhea
Review of Systems
General: Fever (n)
Cardiopulmonary: Dyspnea (n) and Cough (n)
GI: Abdominal Pain (n) and Nausea (n)
Neuro: Headache (n)
Objective Data
Data Reviewed
Vital Signs / I&O / Oxygen:
Vital Signs
Temp Pulse Resp BP Pulse Ox
97.6 F 81 16 128/67 98
05/13/24 08:08 05/13/24 07:00 05/13/24 07:00 05/13/24 06:00 05/13/24 08:00
Intake and Output
05/12/24 05/13/24 05/14/24
06:59 06:59 06:59
Intake Total 1508.0 / 1762.0 4276 / 4276 720 / 720
Output Total 2100 / 2100 2225 / 2225 750 / 750
Balance -592.0 / -338.0 2050 / 2050 -30 / -30
SaO2 98
Physical Exam
General: Comfortable
HEENT: Normocephalic
Cardiovascular: S1-S2
Respiratory: Clear and Non-Labored Respirations
GI: Soft and Non Distended
Neurology: Awake, Oriented, AO x 3 and No Motor Deficits
Skin: Good Color
Labs/Micro/Reports
Lab Data
05/13/24 04:21
Microbiology
05/11/24 23:59 Blood/Venous Blood Culture - Preliminary
No Growth in 24 hours- Final report to follow
05/11/24 23:59 Nasal Swab Influenza Types A & B (PINO) - Final
Negative for Influenza A & B, NAAT
Negative results must be combined with clinical observations
and patient history.
Nucleic Acid Amplification test (NAAT)performed on the
[employer] platform.
--- NOTE | 2024-05-13 11:37 | W.PN.HOSP.TC ---
Addendum entered and electronically signed by Toby Houston MD 05/13/24 13:52:
Assessment and Plan
DKA and hypernatremic
-Resolved
_Transitionf rom Insulin gtt to long and short acting inuslin
-Diabetes consults are following
Diabetes type 1
-Endo consult once out of ICU
-Accucchecks
-SSI
-BG 140-180
Will continue to monitor. Likely DC tomorrow.
Original Note:
Today's Communication/Plan
-
Consider discharging home
Continue subcu insulin
Continue diabetic diet
Assessment / Plan
Assessment / Plan
impression: 39 year old male with pmh of DM1 presents for severe DKA with BG of 1153, hypernatremia, dehydration and TME.
Plan:
#Diabetes ketoacidosis
Resolved
Anion gap 6 this morning was 36 on admission
Gap has been closed for approximately 24 hours
likely triggered by not taking insulin for days and viral GI infection
Blood glucose on admission 1153, with an anion gap of 36
Started on regular insulin 100 units per 100 mL
Has been transition to subcu insulin regiment
Initially normal saline to 250 mL/h
Was transition to half-normal saline with glucose and potassium at 250 mL/h
IV fluids discontinued
BG in 200s today
Currently patient reports no nausea or vomiting, no abdominal pain
Patient tolerating clear liquids and diabetic diet well with no nausea or vomiting
hourly accu-checks
antiemetics PRN
Diabetic nurse practitioner following and has initiated patient on subcu insulin regiment
Tolerating insulin regiment well
Monitor electrolytes
#hypernatremia
etiology likely secondary to dehydration
Corrected sodium 151
Encourage p.o. intake
#TME
Resolved
Likely secondary to extreme blood glucose levels, DKA/hypernatremia
#Blurry vision
Patient reports blurry vision on reading
Visual flores intact
Etiology likely secondary to DKA/high blood glucose levels
Encourage ophthalmology visit after discharge
#leukocytosis
Likely reactive
no obvious source of infection
Leukocytosis downtrending
pt afebrile, follow fever curve
Daily CBC
#viral gastroenteritis
resolved
no nausea, vomiting or diarrhea
Likely exacerbating factor for DKA
Diet: Diabetic diet
DVT ppx: subc lovenox
Full code
Anticipated Discharge: Within 24 hours
Subjective/Interval History
-
Date of Service: May 13, 2024
Patient appears much better, currently eating and drinking. Anion gap has been closed for approximately 24 hours
Objective Data
-
Labs:
Laboratory Results
05/13/24 05/13/24 05/13/24
04:21 05:32 12:40
WBC 14.8 H
Hgb 11.0 L
Hct 31.4 L
Plt Count 166 D
Sodium Cancelled 148 H Pending
Potassium Cancelled 5.0 Pending
Chloride Cancelled 113 H Pending
Carbon Dioxide Cancelled 29 Pending
BUN Cancelled 34 H Pending
Creatinine Cancelled 1.1 Pending
Glucose Cancelled 272 H Pending
Calcium Cancelled 8.4 Pending
Vital Signs:
Vital Signs
Temp Pulse Resp BP Pulse Ox
98.1 F 81 16 128/67 98
05/13/24 11:32 05/13/24 07:00 05/13/24 07:00 05/13/24 06:00 05/13/24 08:00
I&O
05/12/24 05/13/24 05/14/24
06:59 06:59 06:59
Intake Total 1508.0 / 1762.0 4276 / 4276 1640 / 1640
Output Total 2100 / 2100 2225 / 2225 1250 / 1250
Balance -592.0 / -338.0 2050 390 / 390
Review of Systems
-
History Source: Patient
Constitutional: Reports No Symptoms
EENT: Reports Blurry Vision
Respiratory: Reports No Symptoms
Cardiac: Reports No Symptoms
Abdomen/GI: Reports No Symptoms
Genitourinary: Reports No Symptoms
Neuro: Reports No Symptoms
Physical Exam
-
General: Well Developed, Well Nourished, No Apparent Distress, Comfortable and Conversant
HEENT: Other (Visual flores grossly intact, patient endorses some blurriness)
Respiratory: Clear to Auscultation
Cardiac: Regular Rhythm and S1/S2
GI: Soft, Nontender and Nondistended
Musculoskeletal: No Edema
Skin: Warm and Dry
Neuro: Awake, Alert, Oriented and AO x 3
Psych: Calm and Intact Judgement/Insight
Data Reviewed
-
Labs: Labs Reviewed by me and Discussed with Physician
[2024-05-13] MEDS: NOVOLOG FLEXPEN-MODERATE RESISTANCE 7 UNITS SC (11:54)
[2024-05-13 12:03] LABS: Glucose - Point of Care 320 mg/dl (70-99)
--- NOTE | 2024-05-13 12:26 | PTCARENOTE ---
Pt remains OOB in chair. Mom visiting at bedside. Insulin coverage provided. Pt encouraged to order lunch. Ordered lab drawn and sent. Pt encouraged to complete AM hygiene. No changes noted or new complaints received.
[2024-05-13 12:27] LABS: Blood Urea Nitrogen 29 mg/dl (9-20); Calcium 8.5 mg/dl (8.4-10.2); Carbon Dioxide 28 mmol/L (22-30); Chloride 110 mmol/L (98-107); Estimated Creatinine Clearance 90 ml/min; Glucose 326 mg/dl (70-99); Potassium 4.9 mmol/L (3.5-5.1); Sodium 145 mmol/L (135-145); eGFR > 60.00
--- NOTE | 2024-05-13 14:18 | CM ---
CM following re: discharge planning.
Reviewed pt's chart, met with pt. Per rounds meeting, pt is downgraded from ICU level of care.
D/C plan: home with no needs. Pt will follow up with [employer] insurance for obtaining medical coverage.
--- NOTE | 2024-05-13 16:46 | PTCARENOTE ---
Pt remains OOB in chair. Poor appetite. Pt reports it's been challenging swallowing 'I've been chewing and it just doesn't want to go down'. Pt denies difficulty w/ thin liquids. No cough noted. Order for Speech therapy/swallow eval noted. Pt
remains on RA w/ POx 99%. Denies nausea. Transfer to tele orders noted- waiting on bed availability.
[2024-05-13 16:58] LABS: Glucose - Point of Care 202 mg/dl (70-99)
[2024-05-13] MEDS: LOVENOX 40 MG SC (18:24)
--- NOTE | 2024-05-13 20:00 | PTCARENOTE ---
Received pt via handoff. Pt AAOx3 but lethargic, HUDSON. NSR, palpable pulses w/ no edema. 93% on RA. Lungs diminished but clear. Able to use urinal. Skin CDI. No gtts running. Call castañeda at bedside, will continue to monitor.
[2024-05-13] MEDS: LANTUS 0.25 UNITS SC (21:39)
[2024-05-13 21:45] LABS: Glucose - Point of Care 276 mg/dl (70-99)
--- NOTE | 2024-05-14 | PTCARENOTE ---
All systems reassessed. No changes in status. Call castañeda at bedside, will continue to monitor.
[2024-05-14 00:40] VITALS: BP 115/63
[2024-05-14 02:00] VITALS: BP 116/71
[2024-05-14 02:55] VITALS: BP 121/81
[2024-05-14 04:00] VITALS: BP 150/92
[2024-05-14 04:05] VITALS: BMI 22.8
[2024-05-14] MEDS: ZOFRAN 4 MG IV (04:08)
[2024-05-14 04:09] LABS: Hematocrit 34.3 % (39.0-52.0); Hemoglobin 11.7 g/dL (13.0-18.0); Mean Corp Hgb Conc. 34.1 g/dL (33.0-37.0); Mean Corpuscular Hgb 30.6 pg (27.0-31.0); Mean Corpuscular Volume 89.8 fL (80.0-94.0); Mean Platelet Volume 10.1 fL (7.4-10.4); Platelet Count 166 10^3/uL (130-400); Red Blood Cell Count 3.82 10^6/uL (4.70-6.10); Red Cell Dist. Width 11.4 % (11.5-14.5); White Blood Cell Count 6.6 10^3/uL (4.8-10.8)
[2024-05-14 04:31] LABS: Blood Urea Nitrogen 22 mg/dl (9-20); Carbon Dioxide 28 mmol/L (22-30); Chloride 110 mmol/L (98-107); Estimated Creatinine Clearance 94 ml/min; Glucose 209 mg/dl (70-99); Sodium 148 mmol/L (135-145); eGFR > 60.00
[2024-05-14 07:41] LABS: Glucose - Point of Care 238 mg/dl (70-99)
[2024-05-14] MEDS: NSS (PRESERVATIVE FREE) IV (07:43)
[2024-05-14] MEDS: NOVOLOG FLEXPEN 6 UNITS SC ×2 (08:12→11:38)
[2024-05-14] MEDS: NOVOLOG FLEXPEN-MODERATE RESISTANCE 3 UNITS SC (08:13)
--- NOTE | 2024-05-14 10:00 | PTOTSP ---
SPEECH THERAPY SWALLOW EVALUATION:
Pt exhibits grossly functional oropharyngeal swallow at this time. No history of dysphagia/aspiration. No significant predisposing dysphagia risk factors. No overt signs of aspiration. CXR clear, WBC currently WNL. Respiratory status stable
(breathing comfortably on room air). Pt alert and oriented at this time. Pt endorsed mild persistent dysphagia symptoms characterized by globus sensation in throat. Suspect globus sensation may be related to irritation s/p vomiting episodes in the
days prior. Pt endorsed improvement in symptoms since yesterday. Denied dysphagia symptoms during this evaluation. Recommend Regular texture diet, thin liquids. Medications whole with liquid as best tolerated. Aspiration precautions: Upright
positioning; Small single sips/bites; Slow rate of intake; Overchew solids. Patient appears to be at baseline level of swallow function; No skilled ST services are indicated at this time. Discussed with pt that should symptoms worsen or any concern
for signs of aspiration, please contact ST for re-assessment.
RECOMMEND:
1) Regular texture diet, thin liquids
2) Medications whole with liquid as best tolerated
3) Aspiration precautions: Upright positioning; Small single sips/bites; Slow rate of intake; Overchew solids
4) No skilled ST services are indicated at this time
[2024-05-14] MEDS: NOVOLOG FLEXPEN-MODERATE RESISTANCE 7 UNITS SC (11:38)
[2024-05-14 11:44] LABS: Glucose - Point of Care 303 mg/dl (70-99)
--- NOTE | 2024-05-14 11:58 | W.DCSUMMARY ---
Discharge Summary
Discharge Data
Date of Admission: 05/12/24
Date of Discharge: 05/14/24
-
Pending Results: No
Hospital Course
39 male history of type 1 diabetes with gastroparesis Presented with complaints of vomiting abdominal pain since Thursday. Was related to a viral bug. Blood sugars persistently greater than 200 at home. Found lethargic somewhat confused and brought
to the ER. Found to be in severe diabetic ketoacidosis. Started on IV fluids and insulin drip. Anion gap closed and was transitioned to long and short acting insulin. Will need outpatient follow-up. Also complained of blurry vision recommend
outpatient follow-up with ophthalmology as this is likely related to hyperglycemia.
Please follow up with your outpatient lumber cutter
Please follow up with your outpatient eye doctor for follow up on your blurry vision
Please follow up with your PCP within one week of discharge
Discharge Plan
-
Patient Disposition: Home (Routine Discharge)
Discharge Diagnosis/Procedures: Severe DKA
Condition: Good
Diet: Diabetic, Carb Controlled
Activity: As tolerated
Driving Restrictions: As prior to admission
Bathing Restrictions: None
Activity Restrictions/Additional Instructions:
Presented with complaints of vomiting abdominal pain since Thursday. Was related to a viral bug. Blood sugars persistently greater than 200 at home. Found lethargic somewhat confused and brought to the ER. Found to be in severe diabetic
ketoacidosis. Started on IV fluids and insulin drip. Anion gap closed and was transitioned to long and short acting insulin. Will need outpatient follow-up. Also complained of blurry vision recommend outpatient follow-up with ophthalmology as
this is likely related to hyperglycemia.
Please follow up with your outpatient lumber cutter
Please follow up with your outpatient eye doctor for follow up on your blurry vision
Please follow up with your PCP within one week of discharge
Instructions: Diabetic Ketoacidosis (DC)
Referrals:
Ilda Painter MD [Consulting Staff] - in two to three weeks
Enda Cruz MD [Family Provider] - in less than 1 week
Prescriptions:
Continued
insulin lispro [Humalog KwikPen Insulin] 100 unit/mL Insulin Pen
2 - 3 sliding scale dose SC AC
buspirone 15 mg Tablet
15 mg PO TID
bupropion HCl [Wellbutrin XL] 150 mg Tablet Extended Release 24 Hr
150 mg PO DAILY
Changed
insulin glargine [Lantus U-100 Insulin] 100 UNITS/1 ML solution
25 unit SC HS 30 Days Qty: 1 0RF
Discharge Orders:
Discharge Patient (As Directed); Ordered 05/14/24
Ordered By: Toby Houston
Discharge Date and Time
Print Language: CYMRAES
--- NOTE | 2024-05-14 12:01 | W.PN.HOSP.TC ---
Today's Communication/Plan
-
dc home
More than 30 minutes spent in discharge including
Final examination of the patient
Summarizing hospital stay
Instructions for continuing care to all relevant caregivers
Preparation of discharge records, prescriptions, and referral forms
Total time spent (in minutes): 36mins
Assessment / Plan
Assessment / Plan
Physical Exam
NAD, resting comfortably in bed
Scleral anicteric
Moist mucous membranes
No JVD
CTA bilateral
Normal S1-S2 no murmurs
Soft nontender nondistended bowel sounds active
No peripheral pitting edema
Moves extremities spontaneously
AAOx3
Assessment and Plan
Diabetic ketoacidosis
-Resolved
-Tolerating diet
Diabetes type 1
-Evaluated by diabetes team
-Lantus dosing increased to 25 units from 20 units
-Continue NovoLog sliding scale on discharge
-Outpatient endocrinology follow-up
-Discussed at bedside compliance of insulin
Blurry vision
-Likely a sequelae of hyperglycemia
-Expect to improve
-Outpatient ophthalmology follow-up for retinal evaluation
Anticipated Discharge: Today
Subjective/Interval History
-
Date of Service: May 14, 2024
Seen and examined. No new complaints. No acute overnight events.
Tolerating diet very well no further episodes of diarrhea abdominal pain nausea vomiting
urinating well
blurry vision improving
Objective Data
-
Labs:
Laboratory Results
05/14/24
03:54
WBC 6.6
Hgb 11.7 L
Hct 34.3 L
Plt Count 166
Sodium 148 H
Potassium 5.0
Chloride 110 H
Carbon Dioxide 28
BUN 22 H
Creatinine 1.0
Glucose 209 H
Calcium 9.0
Vital Signs:
Vital Signs
Temp Pulse Resp BP Pulse Ox
99.6 F 88 15 150/92 97
05/14/24 11:00 05/14/24 05:00 05/14/24 05:00 05/14/24 04:00 05/14/24 08:38
I&O
05/13/24 05/14/24 05/15/24
06:59 06:59 06:59
Intake Total 4276 / 4276 2960 / 2960
Output Total 2225 / 2225 3400 / 3400
Balance 2051 / 2051 -440 / -440
[2024-05-14] MEDS: AFLURIA (36 mos+) 2024-2025 FORMULA 0.5 ML IM (12:16)
--- NOTE | 2024-05-14 12:28 | PTCARENOTE ---
reviewed D/C instructions and medication list with pt and family. both expressed understanding. VS wNL. No c/O pain removed both INT
[2024-05-14 12:30] VITALS: BP 130/58
== END 2024-05-14 13:39 | disposition home or self-care (01) | DRG 637 ==
LOC: ICU 01:11
PROVIDERS: Physician Assistant; ADMITTING PHYSICIAN Hospitalist; ATTENDING PHYSICIAN Hospitalist; EMERGENCY PHYSICIAN Emergency Medicine; FAMILY PHYSICIAN Family Medicine; OTHER PHYSICIAN Internal Medicine Critical Care Medicine
PROC: 3E02340 Introduction of Influenza Vaccine into Muscle, Percutaneous Approach (ICD-10-PCS; 2024-05-14)
DX: E10.10 Type 1 diabetes mellitus with ketoacidosis without coma (principal); G92.8 Other toxic encephalopathy; N17.9 Acute kidney failure, unspecified; E87.0 Hyperosmolality and hypernatremia; E10.43 Type 1 diabetes mellitus with diabetic autonomic (poly)neuropathy; F32.A Depression, unspecified; F41.9 Anxiety disorder, unspecified; K31.84 Gastroparesis; A08.4 Viral intestinal infection, unspecified; H53.8 Other visual disturbances; Z88.0 Allergy status to penicillin; Z88.8 Allergy status to other drugs, medicaments and biological substances; Z20.822 Contact with and (suspected) exposure to COVID-19; Z23 Encounter for immunization
CPT/HCPCS: 36600; 51702; 51798; 71045; 80048; 81003; 82010; 82805; 82947; 82962; 83036; 83605; 83690; 83735; 84100; 84439; 84443; 85025; 85027; 87040; 87502; 87811; 90686; 92610; 93005; 96361; 96374; 96375; 96376; 99291; G0008